=== PATIENT | female | born 1970 | race Caucasian/White ===

== ENCOUNTER 2019-09-24 11:08 | Emergency (ER) | payer BC ==
[2019-09-24 11:14] VITALS: RESP 18; TEMP 98.3
--- NOTE | 2019-09-24 11:44 | ED ---
Lower Extremity Injury HPI - General Chief Complaint: Extremity Injury, Lower Stated Complaint: fall/leg pain Time Seen by Provider: 09/24/19 11:19 Source: patient Mode of arrival: wheelchair Limitations: no limitations - History of Present Illness Initial Comments: 49-year-old female presenting today for chief complaint of left knee pain. Patient states that she has left knee pain anteriorly and posteriorly after fall she states that she tripped over her dog. Patient denies dislocation she denies numbness tingling or loss of sensation coolness or pallor of the extremity denies a pain in the hip ankle or foot. Patient denies injury to her head and neck abdomen or chest doesn't injury of the upper extremities remaining review of systems negative upon arrival patient appears well no signs of acute distress. - Related Data Allergies Allergy/AdvReac Type Severity Reaction Status Date / Time codeine Allergy Swelling Verified 09/24/19 11:14 dicyclomine [From Bentyl] Allergy Rash/Hives Verified 09/24/19 11:14 morphine Allergy Swelling Verified 09/24/19 11:14 Review of Systems ROS Statement: Those systems with pertinent positive or pertinent negative responses have been documented in the HPI. ROS Other: All systems not noted in ROS Statement are negative. Past Medical History Past Medical History: Hypertension History of Any Multi-Drug Resistant Organisms: None Reported Past Surgical History: Cholecystectomy Additional Past Surgical History / Comment(s): tubal , brain tumor removal Past Psychological History: No Psychological Hx Reported Smoking Status: Never smoker Past Alcohol Use History: None Reported Past Drug Use History: None Reported General Exam - General Exam Comments Initial Comments: General: The patient is awake and alert, in no distress, and does not appear acutely ill. Eye: Pupils are equal, round and reactive to light, extra-ocular movements are intact. No nystagmus. There is normal conjunctiva bilaterally. No signs of icterus. Ears, nose, mouth and throat: There are moist mucous membranes and no oral lesions. Neck: The neck is supple, there is no tenderness or JVD. Cardiovascular: There is a regular rate and rhythm. No murmur, rub or gallop is appreciated. Respiratory: Lungs are clear to auscultation, respirations are non-labored, breath sounds are equal. No wheezes, stridor, rales, or rhonchi. Musculoskeletal: Patient is able to range at the knees bilaterally however complains of significant tenderness is range of motion of the left knee. Strength preserved no evidence of foot drop. Sensation intact proximal and dis danny injury site. There is no bruising or swelling posteriorly or distally. Radial and DP pulses equal bilaterally 2+. Neurological: A&O x 3. CN II-XII intact grossly, There are no obvious motor or sensory deficits. Coordination appears grossly intact. Speech is normal. Skin: Skin is warm and dry and no rashes or lesions are noted. Psychiatric: Cooperative, appropriate mood & affect, normal judgment. Limitations: no limitations Course Vital Signs 09/24/19 09/24/19 11:09 12:50 Temperature 98.3 F 98.3 F Pulse Rate 82 78 Respiratory 18 18 Rate Blood Pressure 146/97 138/78 O2 Sat by Pulse 98 98 Oximetry Medical Decision Making - Medical Decision Making 29-year-old female presenting for follow-up. X-ray negative for fracture. Patient is able to weight-bear however with pain patient placed in the immobilizer she is neurovascularly intact. I recommend importance of follow up with primary care provider if symptoms persist greater than 5 days she is to follow-up with orthopedic surgery recommended use of crutches for comfort as well as Rice instruction patient is agreeable to this Discharge at This Time Case Discussed Medicine Provider Dr. Kenney. Imaging personally reviewed. Disposition Clinical Impression: Fall, Left knee pain Disposition: HOME SELF-CARE Condition: Good Instructions (If sedation given, give patient instructions): Knee Sprain (ED), Knee Pain (ED) Additional Instructions: Please use medication as discussed. Please follow-up with family doctor in the next 2 days, if symptoms persistent x > 5 days please follow-up with orthopedics as discussed. Please return to emergency room if the symptoms increase or worsen or for any other concerns. Is patient prescribed a controlled substance at d/c from ED?: No Referrals: Blayne Maldonado MD [STAFF PHYSICIAN] - 1-2 days Jack Drew MD [Medical Doctor] - 1-2 days Time of Disposition: 11:59
--- NOTE | 2019-09-24 11:52 | XR ---
EXAMINATION TYPE: XR knee complete LT DATE OF EXAM: 09/24/2019 CLINICAL HISTORY: Left knee pain TECHNIQUE: Three views of the left knee are obtained. COMPARISON: None. FINDINGS: There is no acute fracture/dislocation evident in left knee. The tri-compartment joint sp aces appear within normal limits. The overlying soft tissue appears unremarkable. IMPRESSION: There is no acute fracture or dislocation in the left knee.
[2019-09-24 13:00] VITALS: BP 138/78; PULSE 78
== END 2019-09-24 12:50 | disposition home or self-care (01) ==
LOC: EC 11:08
DX: M25.562 Pain in left knee (principal); Z88.5 Allergy status to narcotic agent; Z88.8 Allergy status to other drugs, medicaments and biological substances; W01.0XXA Fall on same level from slipping, tripping and stumbling without subsequent striking against object, initial encounter
CPT/HCPCS: 73562; 99283; L1830

== ENCOUNTER 2019-11-01 19:33 | Emergency (ER) | payer BC ==
[2019-11-01 19:52] VITALS: RESP 18; TEMP 98
--- NOTE | 2019-11-01 20:18 | ED ---
Extremity Problem HPI - General Chief complaint: Extremity Problem,Nontraumatic Stated complaint: Leg swelling Time Seen by Provider: 11/01/19 19:59 Source: patient Mode of arrival: ambulatory Limitations: no limitations - History of Present Illness Initial comments: Patient is a 49-year-old female presenting to the emergency Department with complaints of bilateral lower leg swelling, tingling. Patient states she had a virtual health visit with her PCPs office today and they recommended her coming into the emergency department for ultrasounds of her legs to rule out a blood clot. Patient states for the last few weeks she's been having some achiness in both of her lower legs. She states today she noticed some swelling on the inside part of her right knee as well as some intermittent tingling into her bilateral feet. Patient denies history of DVTs, she is not on blood thinners. Patient denies any other new medications. She denies any injuries. She states she does have an appointment with her PCPs office next week to evaluate her low back to see if that is what causing the pain in her legs however they wanted her to rule out a blood clot first. She denies any recent fever, chills, abdominal pain, chest pain, stops of breath. She has no further complaints at this time. Upon arrival to the ER, her vitals are stable. - Related Data Allergies Allergy/AdvReac Type Severity Reaction Status Date / Time codeine Allergy Swelling Verified 11/01/19 19:52 dicyclomine [From Bentyl] Allergy Rash/Hives Verified 11/01/19 19:52 morphine Allergy Swelling Verified 11/01/19 19:52 Review of Systems ROS Statement: Those systems with pertinent positive or pertinent negative responses have been documented in the HPI. ROS Other: All systems not noted in ROS Statement are negative. Past Medical History Past Medical History: Hypertension History of Any Multi-Drug Resistant Organisms: None Reported Past Surgical History: Cholecystectomy Additional Past Surgical History / Comment(s): tubal , brain tumor removal Past Psychological History: No Psychological Hx Reported Smoking Status: Never smoker Past Alcohol Use History: None Reported Past Drug Use History: None Reported General Exam - General Exam Comments Initial Comments: GENERAL: Well-appearing, well-nourished and in no acute distress. HEAD: Atraumatic, normocephalic. EYES: Pupils equal round and reactive to light, extraocular movements intact, sclera anicteric, conjunctiva are normal. ENT: TMs normal, nares patent, oropharynx clear without exudates. Moist mucous membranes. NECK: Normal range of motion, supple without lymphadenopathy or JVD. LUNGS: Breath sounds clear to auscultation bilaterally and equal. No wheezes rales or rhonchi. HEART: Regular rate and rhythm without murmurs, rubs or gallops. ABDOMEN: Soft, nontender, normoactive bowel sounds. No guarding, no rebound. No masses appreciated. : Deferred EXTREMITIES: Patient has some mild swelling of the right knee, compared to the left knee. She does seem to have full range of motion. There is no overlying erythema. She does have some mild discomfort with palpation of the right calf. She is neurovascular intact bilaterally. No clubbing or cyanosis. NEUROLOGICAL: Cranial nerves II through XII grossly intact. Normal speech, normal gait. PSYCH: Normal mood, normal affect. SKIN: Warm, Dry, normal turgor, no rashes or lesions noted. Limitations: no limitations Course Vital Signs 11/01/19 11/01/19 19:47 21:31 Temperature 98.0 F Pulse Rate 84 75 Respiratory 18 18 Rate Blood Pressure 148/96 151/85 O2 Sat by Pulse 98 99 Oximetry Medical Decision Making - Medical Decision Making Patient is a 49-year-old female here for bilateral lower leg swelling and tingling. She was sent in by her PCP to rule out a DVT. She is set to see her PCP regarding lower back discomfort next week. Ultrasound of bilateral lower legs reveal no evidence of acute DVT. I did discuss this with the patient. She is stable for discharge. She will follow back up with her PCP. She is in agreement this plan of care. Disposition Clinical Impression: Edema of right lower leg Disposition: HOME SELF-CARE Condition: Stable Instructions (If sedation given, give patient instructions): Leg Edema (ED) Additional Instructions: Please return to the Emergency Department if symptoms worsen or any other concerns. Follow-up with PCP. Elevate legs above the heart to help with swelling. Is patient prescribed a controlled substance at d/c from ED?: No Referrals: Blayne Maldonado MD [STAFF PHYSICIAN] - 1-2 days
--- NOTE | 2019-11-01 21:12 | US ---
EXAMINATION TYPE: US venous doppler duplex LE DATE OF EXAM: 11/01/2019 8:57 PM COMPARISON: NONE CLINICAL HISTORY: swelling, achy, tingling. Pain and swelling bilateral legs x 1 day. No hx of DVT. P atient does not take blood thinners. SIDE PERFORMED: Bilateral TECHNIQUE: The lower extremity deep venous system is examined utilizing real time linear array sonog matilde with graded compression, doppler sonography and color-flow sonography. VESSELS IMAGED: External Iliac Vein (EIV) Common Femoral Vein Deep Femoral Vein Greater Saphenous Vein * Femoral Vein Popliteal Vein Small Saphenous Vein * Proximal Calf Veins (* superficial vessels) *Limited due to patient body habitus. Right Leg: No evidence of DVT in veins imaged at this time from prox calf veins to EIV. Left Leg: No evidence of DVT in veins imaged at this time from prox calf veins to EIV. IMPRESSION: No evidence for DVT at this time.
[2019-11-01 21:34] VITALS: BP 151/85; PULSE 75
== END 2019-11-01 21:34 | disposition home or self-care (01) ==
LOC: EC 19:33
DX: R60.0 Localized edema (principal); R20.2 Paresthesia of skin; Z88.5 Allergy status to narcotic agent; Z88.8 Allergy status to other drugs, medicaments and biological substances
CPT/HCPCS: 93970; 99283

== ENCOUNTER → 2019-11-12 | Outpatient (CLI) | payer BC | END | disposition home or self-care (01) | LOC: RADMRIMAIN 13:52 | PROVIDERS: ATTEND Nurse Practitioner Family | DX: Z53.9 Procedure and treatment not carried out, unspecified reason (principal) ==

== ENCOUNTER 2020-03-24 19:06 | Emergency (ER) | payer BC ==
[2020-03-24] MEDS ORDERED: SODIUM CHLORIDE 0.9% 500 ML 500 ML IV STA (19:25)
[2020-03-24] MEDS ORDERED: NITROGLYCERIN OINT 1 INCH/GM PACKET TOPICAL STA (19:25)
[2020-03-24] MEDS ORDERED: ASPIRIN 81 MG PO STA (19:25)
--- NOTE | 2020-03-24 19:47 | XR ---
EXAMINATION TYPE: XR chest 2V DATE OF EXAM: 03/24/2020 COMPARISON: NONE HISTORY: Chest pain TECHNIQUE: 2 views FINDINGS: Heart and mediastinum are normal. Lungs are clear of infiltrate. There is no heart failure. There are no hilar masses. Bony thorax is intact. Costophrenic angles are clear. IMPRESSION: No active cardiopulmonary disease. Normal heart.
[2020-03-24 19:54] LABS: Basophils # (A) 0.1 k/uL (0-0.2); Basophils % (A) 0 %; Eosinophils # (A) 0.3 k/uL (0-0.7); Eosinophils % (A) 2 %; HCT 40.8 % (34.0-46.0); HGB 12.8 gm/dL (11.4-16.0); Lymphocytes # (A) 3.7 k/uL (1.0-4.8); Lymphocytes % (A) 22 %; MCH 28.5 pg (25.0-35.0); MCHC 31.4 g/dL (31.0-37.0); MCV 90.7 fL (80.0-100.0); Mean Platelet Volume 7.3; Monocytes # (A) 0.7 k/uL (0-1.0); Monocytes % (A) 4 %; Neutrophils % (A) 71 %; Platelet Count 378 k/uL (150-450); RDW 14.4 % (11.5-15.5); WBC 16.9 k/uL (3.8-10.6)
--- NOTE | 2020-03-24 20:03 | ED ---
General Adult HPI - General Chief complaint: Chest Pain Stated complaint: chest pain Time Seen by Provider: 03/24/20 19:15 Source: patient, RN notes reviewed, old records reviewed Mode of arrival: ambulatory Limitations: no limitations - History of Present Illness Initial comments: This is a 49-year-old female with past medical history significant for h ypertension. She also has a positive family history for coronary artery disease. Patient comes in today stating that a half hour prior to arrival she was having chest pain is in her chest that radiated to her jaw made her short of breath. Patient states she's episode lasted about 5 minutes and she had about 4 of them prior to arrival. Patient denies any nausea. Patient denies any vomiting. Patient denies any recent fever chills or cough. Patient denies any exposure over. Patient denies lightheadedness dizziness or near syncopal episode. Patient denies any headache patient denies numbness weakness. Patient denies any abdominal pain patient denies any vomiting or diarrhea. Patient d enies any loss of taste or smell. Patient denies any calf tenderness or leg swelling - Related Data Allergies Allergy/AdvReac Type Severity Reaction Status Date / Time codeine Allergy Swelling Verified 03/24/20 19:11 dicyclomine [From Bentyl] Allergy Rash/Hives Verified 03/24/20 19:11 morphine Allergy Swelling Verified 03/24/20 19:11 Review of Systems ROS Statement: Those systems with pertinent positive or pertinent negative responses have been documented in the HPI. ROS Other: All systems not noted in ROS Statement are negative. Past Medical History Past Medical History: Hyperlipidemia, Hypertension Additional Past Medical History / Comment(s): RA and psoriasis History of Any Multi-Drug Resistant Organisms: None Reported Past Surgical History: Cholecystectomy Additional Past Surgical History / Comment(s): tubal , brain tumor removal Past Psychological History: No Psychological Hx Reported Smoking Status: Never smoker Past Alcohol Use History: None Reported Past Drug Use History: None Reported General Exam - General Exam Comments Initial Comments: GENERAL: Patient is well-developed and well-nourished. Patient is nontoxic and well- hydrated and is in mild distress. ENT: Neck is soft and supple. No significant lymphadenopathy is noted. Oropharynx is clear. Moist mucous membranes. Neck has full range of motion without eliciting any pain. EYES: The sclera were anicteric and conjunctiva were pink and moist. Extraocular movements were intact and pupils were equal round and reactive to light. Eyelids were unremarkable. PULMONARY: Unlabored respirations. Good breath sounds bilaterally. No audible rales rhonchi or wheezing was noted. CARDIOVASCULAR: There is a regular rate and rhythm without any murmurs gallops or rubs. ABDOMEN: Soft and nontender with normal bowel sounds. SKIN: Skin is clear with no lesions or rashes and otherwise unremarkable. NEUROLOGIC: Patient is alert and oriented x3. Cranial nerves II through XII are grossly intact. Motor and sensory are also intact. Normal speech, volume and content. Symmetrical smile. MUSCULOSKELETAL: Normal extremities with adequate strength and full range of motion. No lower extremity swelling or edema. No calf tenderness. LYMPHATICS: No significant lymphadenopathy is noted PSYCHIATRIC: Normal psychiatric evaluation. Limitations: no limitations Course Vital Signs 03/24/20 03/24/20 19:11 19:51 Temperature 98 F Pulse Rate 89 78 Respiratory 18 17 Rate Blood Pressure 137/100 117/71 O2 Sat by Pulse 100 98 Oximetry Medical Decision Making - Medical Decision Making EKG shows normal sinus rhythm at 74 bpm NV interval 236 QRS is 86 QT interval 346 QTC is 384. Patient's EKG shows no ST segment elevation or depression. Chest x-ray shows no acute abnormality. Patient's lab work came back in and discuss results with the patient indicated to the patient that I thought she should stay. Repeat lab work and follow up with cardiology. Patient states she did not want to stay that her think about it for about 5 minutes I went back into the room and she insisted on signing out AMA patient understood the risks of possible morbidity or mortality. - Lab Data Result diagrams: 03/24/20 19:47 03/24/20 19:50 Lab Results 03/24/20 03/24/20 03/24/20 Range/Units 19:47 19:47 19:47 WBC 16.9 H (3.8-10.6) k/uL RBC 4.50 (3.80-5.40) m/uL Hgb 12.8 (11.4-16.0) gm/dL Hct 40.8 (34.0-46.0) % MCV 90.7 (80.0-100.0) fL MCH 28.5 (25.0-35.0) pg MCHC 31.4 (31.0-37.0) g/dL RDW 14.4 (11.5-15.5) % Plt Count 378 (150-450) k/uL MPV 7.3 Neutrophils % 71 % Lymphocytes % 22 % Monocytes % 4 % Eosinophils % 2 % Basophils % 0 % Neutrophils # 12.0 H (1.3-7.7) k/uL Lymphocytes # 3.7 (1.0-4.8) k/uL Monocytes # 0.7 (0-1.0) k/uL Eosinophils # 0.3 (0-0.7) k/uL Basophils # 0.1 (0-0.2) k/uL PT 9.6 (9.0-12.0) sec INR 0.9 (<1.2) APTT 22.6 (22.0-30.0) sec Sodium (137-145) mmol/L Potassium (3.5-5.1) mmol/L Chloride (98-107) mmol/L Carbon Dioxide (22-30) mmol/L Anion Gap mmol/L BUN (7-17) mg/dL Creatinine (0.52-1.04) mg/dL Est GFR (CKD-EPI)AfAm (>60 ml/min/1.73 sqM) Est GFR (CKD-EPI)NonAf (>60 ml/min/1.73 sqM) Glucose (74-99) mg/dL Calcium (8.4-10.2) mg/dL Magnesium (1.6-2.3) mg/dL Total Bilirubin (0.2-1.3) mg/dL AST (14-36) U/L ALT (4-34) U/L Alkaline Phosphatase (38-126) U/L Troponin I <0.012 (0.000-0.034) ng/mL Total Protein (6.3-8.2) g/dL Albumin (3.5-5.0) g/dL 03/24/20 Range/Units 19:50 WBC (3.8-10.6) k/uL RBC (3.80-5.40) m/uL Hgb (11.4-16.0) gm/dL Hct (34.0-46.0) % MCV (80.0-100.0) fL MCH (25.0-35.0) pg MCHC (31.0-37.0) g/dL RDW (11.5-15.5) % Plt Count (150-450) k/uL MPV Neutrophils % % Lymphocytes % % Monocytes % % Eosinophils % % Basophils % % Neutrophils # (1.3-7.7) k/uL Lymphocytes # (1.0-4.8) k/uL Monocytes # (0-1.0) k/uL Eosinophils # (0-0.7) k/uL Basophils # (0-0.2) k/uL PT (9.0-12.0) sec INR (<1.2) APTT (22.0-30.0) sec Sodium 136 L (137-145) mmol/L Potassium 4.4 (3.5-5.1) mmol/L Chloride 104 (98-107) mmol/L Carbon Dioxide 27 (22-30) mmol/L Anion Gap 5 mmol/L BUN 22 H (7-17) mg/dL Creatinine 0.77 (0.52-1.04) mg/dL Est GFR (CKD-EPI)AfAm >90 (>60 ml/min/1.73 sqM) Est GFR (CKD-EPI)NonAf >90 (>60 ml/min/1.73 sqM) Glucose 103 H (74-99) mg/dL Calcium 9.4 (8.4-10.2) mg/dL Magnesium 2.2 (1.6-2.3) mg/dL Total Bilirubin 0.5 (0.2-1.3) mg/dL AST 27 (14-36) U/L ALT 34 (4-34) U/L Alkaline Phosphatase 83 (38-126) U/L Troponin I (0.000-0.034) ng/mL Total Protein 6.5 (6.3-8.2) g/dL Albumin 3.9 (3.5-5.0) g/dL Disposition Clinical Impression: Unstable angina pectoris Disposition: Left Against Medical Advice Referrals: Blayne Maldonado MD [Primary Care Provider] - 1-2 days Time of Disposition: 21:06
[2020-03-24 20:05] LABS: INR 0.9 (<1.2); Partial Thromboplastin Time 22.6 sec (22.0-30.0); Prothrombin Time 9.6 sec (9.0-12.0)
[2020-03-24 20:07] LABS: ALT 34 U/L (4-34); AST 27 U/L (14-36); African American GFR (CKD) >90 (>60 ml/min/1.73 sqM); Albumin 3.9 g/dL (3.5-5.0); Alkaline Phosphatase 83 U/L (38-126); Anion Gap 5 mmol/L; Blood Urea Nitrogen 22 mg/dL (7-17); Calcium 9.4 mg/dL (8.4-10.2); Carbon Dioxide 27 mmol/L (22-30); Chloride 104 mmol/L (98-107); Glucose 103 mg/dL (74-99); Magnesium 2.2 mg/dL (1.6-2.3); Non-African American GFR(CKD) >90 (>60 ml/min/1.73 sqM); Potassium 4.4 mmol/L (3.5-5.1); Sodium 136 mmol/L (137-145); Total Bilirubin 0.5 mg/dL (0.2-1.3); Total Protein 6.5 g/dL (6.3-8.2)
[2020-03-24 21:12] VITALS: BP 110/61; PULSE 76; RESP 18; TEMP 98.1
== END 2020-03-24 21:25 | disposition left against medical advice (07) ==
LOC: EC 19:06
DX: I20.0 Unstable angina (principal); Z88.5 Allergy status to narcotic agent; Z88.8 Allergy status to other drugs, medicaments and biological substances; Z53.29 Procedure and treatment not carried out because of patient's decision for other reasons
CPT/HCPCS: 36415; 71046; 80053; 83735; 84484; 85025; 85610; 85730; 93005; 99285

== ENCOUNTER → 2020-06-05 | Outpatient (CLI) | payer BC ==
--- NOTE | 2020-06-05 10:26 | XR ---
EXAMINATION TYPE: XR skull complete DATE OF EXAM: 06/05/2020 COMPARISON: NONE HISTORY: History of brain surgery 32 years ago, pre-MRI study. TECHNIQUE: Skull complete with both lateral projections along with frontal and posterior projections FINDINGS: No metallic intracranial foreign body is identified to prevent MRI study. IMPRESSION: As above.
== END | disposition home or self-care (01) ==
LOC: RADXRMAIN 09:54
PROVIDERS: ATTEND Physical Medicine & Rehabilitation
DX: Z03.89 Encounter for observation for other suspected diseases and conditions ruled out (principal); Z98.890 Other specified postprocedural states
CPT/HCPCS: 70260

== ENCOUNTER 2020-12-11 21:13 | Emergency (ER) | payer BC ==
[2020-12-11 21:18] VITALS: BP 143/76; PULSE 97; RESP 18; TEMP 98.2
--- NOTE | 2020-12-11 21:37 | XR ---
RESULT: HISTORY: left ring finger injury TECHNIQUE: 3 views of the left ring finger were obtained. COMPARISON: None. FINDINGS: There is ulnar and dorsal dislocation of the ring finger distal interphalangeal joint. No evidence of displaced fracture. No radiopaque foreign body. IMPRESSION: As above.
--- NOTE | 2020-12-11 21:47 | ED ---
General Adult HPI - General Chief complaint: Extremity Injury, Upper Stated complaint: Left hand injury Time Seen by Provider: 12/11/20 21:19 Source: patient, RN notes reviewed Mode of arrival: ambulatory - History of Present Illness Initial comments: Patient is a 50-year-old female that presents to the emergency department complaining of left ring finger injury. She notes she tripped fell try to catch herself when she had her ring finger on the filing cabinet and heard it. She noted the pain while sitting in bed was minimally she was TIME. She denied any other issues or complaints. She was otherwise a well-appearing 50-year-old female. She denied any chest pain shortness of breath headache nausea vomiting diarrhea constipation fever fatigue chills. - Related Data Allergies Allergy/AdvReac Type Severity Reaction Status Date / Time codeine Allergy Swelling Verified 12/11/20 21:18 dicyclomine [From Bentyl] Allergy Rash/Hives Verified 12/11/20 21:18 morphine Allergy Swelling Verified 12/11/20 21:18 Review of Systems ROS Statement: Those systems with pertinent positive or pertinent negative responses have been documented in the HPI. ROS Other: All systems not noted in ROS Statement are negative. Past Medical History Past Medical History: Hyperlipidemia, Hypertension Additional Past Medical History / Comment(s): RA and psoriasis History of Any Multi-Drug Resistant Organisms: None Reported Past Surgical History: Cholecystectomy Additional Past Surgical History / Comment(s): tubal , brain tumor removal Past Psychological History: No Psychological Hx Reported Smoking Status: Never smoker Past Alcohol Use History: None Reported Past Drug Use History: None Reported General Exam General appearance: alert, in no apparent distress Head exam: Present: atraumatic, normocephalic, normal inspection Eye exam: Present: normal appearance, PERRL, EOMI. Absent: scleral icterus, conjunctival injection, periorbital swelling Neck exam: Present: normal inspection Respiratory exam: Present: normal lung sounds bilaterally. Absent: respiratory distress, wheezes, rales, rhonchi, stridor Cardiovascular Exam: Present: regular rate, normal rhythm, normal heart sounds. Absent: systolic murmur, diastolic murmur, rubs, gallop, clicks Extremities exam: Present: normal inspection, full ROM, normal capillary refill, other (Left ring finger distal deformity consistent with dislocation.). Absent: tenderness, pedal edema, joint swelling, calf tenderness Neurological exam: Present: alert, oriented X3 Psychiatric exam: Present: normal affect, normal mood Skin exam: Present: warm, dry, intact, normal color. Absent: rash Course Vital Signs 12/11/20 21:14 Temperature 98.2 F Pulse Rate 97 Respiratory 18 Rate Blood Pressure 143/76 O2 Sat by Pulse 99 Oximetry Procedures - Orthopedic Joint Reduction Joint #1 Consent Obtained: verbal consent Side: left Joint Reduction Location: finger (Ring) Shoulder Technique Used (if applicable): traction/counter-traction Post-Reduction Neuro Exam: intact Post-Reduction Vascular Exam: intact Splint Applied: Yes Patient Tolerated Procedure: well - Orthopedic Splinting/Casting Injury #1 Side: left Upper Extremity Injury Location: finger (Ring) Upper Extremity Immobilizer: aluminum form splint Medical Decision Making - Medical Decision Making 50-year-old female complaining of left ring finger injury. X-ray of the left ring finger ordered. Left ring finger dislocation was reduced with no complications, splint was placed. Case discussed with Dr. Kenney him a patient can discharge home. - Radiology Data Radiology results: report reviewed, image reviewed X-ray of the left ring finger: There is ulnar and dorsal dislocation of the ring finger distal interphalangeal joint. No evidence of displaced fracture. No radiopaque foreign body. Disposition Clinical Impression: Dislocation of left ring finger Disposition: HOME SELF-CARE Condition: Stable Instructions (If sedation given, give patient instructions): Finger Dislocation (ED) Additional Instructions: Please return to the Emergency Department if symptoms worsen or any other concerns. Take Tylenol and Motrin as needed for pain. Keep splint on for the next several days. Follow-up with primary care in 1-2 days. Is patient prescribed a controlled substance at d/c from ED?: No Referrals: Blayne Maldonado MD [Primary Care Provider] - 1-2 days Time of Disposition: 21:46
== END 2020-12-11 21:55 | disposition home or self-care (01) ==
LOC: EC 21:13
DX: S63.295A Dislocation of distal interphalangeal joint of left ring finger, initial encounter (principal); E78.5 Hyperlipidemia, unspecified; I10 Essential (primary) hypertension; Z88.6 Allergy status to analgesic agent; Z90.49 Acquired absence of other specified parts of digestive tract; W01.0XXA Fall on same level from slipping, tripping and stumbling without subsequent striking against object, initial encounter
CPT/HCPCS: 26770; 99283

== ENCOUNTER → 2021-04-24 | Outpatient (CLI) | payer BC ==
--- NOTE | 2021-04-24 08:12 | US ---
EXAMINATION TYPE: US thyroid st tissue head/neck DATE OF EXAM: 04/24/2021 COMPARISON: NONE CLINICAL HISTORY: R22.1 lump mass neck. GLAND SIZE: Right Lobe: 5.1 X 2.2 X 1.6 cm Overall Parenchyma: homogenous Left Lobe: 3.6 X 2.4 X 1.6 cm Overall Parenchyma: homogeneous Isthmus Thickness: 0.6 cm NODULES RIGHT: # of nodules measured on right: 0 LEFT: # of nodules measured on left: 1 1. 1.0 X 1.0 x 0.9 cm, lower medial, solid or almost completely solid, hypoechoic nodule, which is wider than tall, with ill-defined margins, with few punctate echogenic foci. Prior size: NO PRIOR ISTHMUS: # of nodules measured in the isthmus: Bilateral neck scanned, no evidence of lymphadenopathy. Scanning was performed directly over palpable as pointed out by patient. This is over thyroid nodule, no other abnormality noted. Slightly heterogeneous fairly normal size thyroid with suspicious left-sided nodule. IMPRESSION: Just over 1.0 cm hypoechoic ill-defined solid nodule with few punctate echogenic foci. Sa mpling should be considered. Finding corresponds to palpable abnormality. 2017 ACR TI-RADS LEVEL: TI-RADS 5 - Highly Suspicious: Follow if > 0.5 cm, FNA if > 1.0 cm *Highest TI-RADS level nodule reported
--- NOTE | 2021-04-24 08:13 | US ---
EXAMINATION TYPE: US kidneys/renal and bladder DATE OF EXAM: 04/24/2021 COMPARISON: NONE CLINICAL HISTORY: R10.11 Right flank pain. EXAM MEASUREMENTS: Right Kidney: 12.9 x 4.8 x 6.3 cm Left Kidney: 10.9 x 6.1 x 6.4 cm Right Kidney: No hydronephrosis or masses seen Left Kidney: No hydronephrosis or masses seen Bladder: wnl Bilateral Jets seen: Yes There is no evidence for hydronephrosis at this point in time. No nephrolithiasis is seen. No xiomara s are identified. The urinary bladder is satisfactorily distended. Bilateral ureteral jets are seen . IMPRESSION: Unremarkable study.
[2021-04-24 08:46] LABS: Basophils # (A) 0.1 k/uL (0-0.2); Basophils % (A) 1 %; Eosinophils # (A) 0.2 k/uL (0-0.7); Eosinophils % (A) 2 %; Lymphocytes # (A) 3.2 k/uL (1.0-4.8); Lymphocytes % (A) 23 %; MCH 29.6 pg (25.0-35.0); MCHC 31.7 g/dL (31.0-37.0); MCV 93.4 fL (80.0-100.0); Mean Platelet Volume 7.8; Monocytes # (A) 0.8 k/uL (0-1.0); Monocytes % (A) 6 %; Neutrophils # (A) 9.3 k/uL (1.3-7.7); Neutrophils % (A) 67 %; Platelet Count 351 k/uL (150-450); RBC 4.07 m/uL (3.80-5.40); RDW 12.9 % (11.5-15.5); WBC 13.8 k/uL (3.8-10.6)
[2021-04-24 08:55] LABS: ALT 21 U/L (4-34); AST 23 U/L (14-36); African American GFR (CKD) >90 (>60 ml/min/1.73 sqM); Albumin 3.5 g/dL (3.5-5.0); Alkaline Phosphatase 100 U/L (38-126); Anion Gap 4 mmol/L; Blood Urea Nitrogen 9 mg/dL (7-17); Calcium 9.3 mg/dL (8.4-10.2); Carbon Dioxide 29 mmol/L (22-30); Chloride 101 mmol/L (98-107); Glucose 88 mg/dL (74-99); Non-African American GFR(CKD) >90 (>60 ml/min/1.73 sqM); Potassium 3.9 mmol/L (3.5-5.1); Sodium 134 mmol/L (137-145); Total Bilirubin 0.4 mg/dL (0.2-1.3); Total Protein 6.5 g/dL (6.3-8.2)
[2021-04-24 09:12] LABS: T4, Free (Free Thyroxine) 1.32 ng/dL (0.78-2.19)
[2021-04-24 15:16] LABS: Chol/HDL Ratio 2.63 Ratio; LDL Cholesterol,Calculated 80.9 mg/dL (0.0-131.0)
== END | disposition home or self-care (01) ==
LOC: RADUSWWP 07:29
PROVIDERS: ATTEND Family Medicine
DX: Z00.01 Encounter for general adult medical examination with abnormal findings (principal); R10.11 Right upper quadrant pain; R22.1 Localized swelling, mass and lump, neck; E04.1 Nontoxic single thyroid nodule; E55.9 Vitamin D deficiency, unspecified; E66.9 Obesity, unspecified; Z68.42 Body mass index [BMI] 45.0-49.9, adult
CPT/HCPCS: 76536; 76770; 80053; 80061; 82306; 83036; 84439; 84443; 85025

== ENCOUNTER → 2021-05-13 | Outpatient (CLI) | payer BC ==
--- NOTE | 2021-05-18 14:22 | MM ---
Reason for exam: clinical finding. Baseline mammogram. History: Patient is postmenopausal. Took hormonal contraceptives for 2 years beginning at age 17. Indicated problem(s): palpable abnormality and pain in the left breast. Physical Findings: Nurse Summary: 1-2cm nodule in the left breast at 1-2 o'clock axillary tail (nurse db). MG Diagnostic Mammo w CAD RINKU Bilateral CC, MLO, and XCCL view(s) were taken. There are scattered fibroglandular densities. There are benign appearing round calcifications bilaterally. There is no discrete abnormality. These results were verbally communicated with the patient and result sheet given to the patient on 05/13/21. ASSESSMENT: Incomplete: need additional imaging evaluation, BI-RAD 0 RECOMMENDATION: Ultrasound of the left breast. (axilla palpable)
--- NOTE | 2021-05-18 14:25 | USB ---
Reason for exam: additional evaluation requested from abnormal screening. History: Patient is postmenopausal. Took hormonal contraceptives for 2 years beginning at age 17. US Breast Axilla LT Left axilla breast ultrasound demonstrates a 15mm lymph node at the axillary tail and a 4 x 4 x 4mm oval, solid lesion connected to lymph node at the axilla tail. Possible abnormal lymph node versus other lesion. These results were verbally communicated with the patient and result sheet given to the patient on 05/13/21. ASSESSMENT: Probably benign, BI-RAD 3 RECOMMENDATION: Surgical consultation of the left breast. Advise contrast enhanced chest CT follow up. Called Dr. Maldonado's office with mammographic findings. Patient request to check with insurance and doctor for surgeon referral and will notifiy [facility]. PRELIMINARY REPORT CALLED AND FAXED TO DR. MALDONADO ON 05/18/21.
== END | disposition home or self-care (01) ==
LOC: RADMAMWWP 14:19
PROVIDERS: ATTEND Family Medicine
DX: R92.1 Mammographic calcification found on diagnostic imaging of breast (principal); N64.59 Other signs and symptoms in breast; Z78.0 Asymptomatic menopausal state
CPT/HCPCS: 77066

== ENCOUNTER → 2021-06-25 | Outpatient (CLI) | payer BC ==
[2021-06-25 11:33] VITALS: BP 149/92; PULSE 103; RESP 17; TEMP 97.9
--- NOTE | 2021-06-25 12:25 | P.GSHP ---
History of Present Illness H&P Date: 06/25/21 Chief Complaint: Left axillary adenopathy Key is a 51-year-old white female seen in consultation for Dr. Keisha felix regarding a radiographic abnormality in the left axilla. She underwent a bilateral mammogram on . Following this an ultrasound of the left axilla was recommended. The nurse have felt a 1-2 cm nodule in the left breast at the 1 to 2:00 axillary tail position. An ultrasound was then performed on the same date which revealed a 4 x 4 mm oval solid lesion connecting to a 15 mm lymph node in the axillary tail. This was personally reviewed with Dr. Zuleta. The patient noted some tenderness under her left arm but no discrete constant mass. She has not had any history of trauma or infection in either breast nor in her left arm or hand. She is not complaining of any nipple discharge or skin changes. She is not complaining of any lumps masses or nodules in either breast. This was her first mammogram. Note from Dr. Maldonado reviewed; 05-20-21 Patient had recent 1 cm nodule left thyroid node biopsy the cytology was unsatisfactory and this is being followed by Dr. Wade. 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; at 19 gallbaldder Medical History: Rheumatoid arthritis Psoriasis carpel tunnel bilateral Hypertension Questionable hyperlipidemia Social History: nicotine: none alcohol:occasional drugs: none - Constitutional Constitutional: Denies chills, Denies fever - EENT Eyes: denies blurred vision, denies pain Ears: bilateral: tinnitus, deny: decreased hearing Ears, nose, mouth and throat: Denies headache, Denies sore throat - Breasts Breasts: bilateral: as per HPI - Cardiovascular Cardiovascular: Denies chest pain, Denies shortness of breath - Respiratory Respiratory: Denies cough, Denies 7 - Gastrointestinal Gastrointestinal: Reports constipation, Denies abdominal pain, Denies diarrhea, Denies nausea, Denies vomiting - Genitourinary (Female) Genitourinary: Denies dysuria, Denies hematuria - Menstruation Menstruation: Reports postmenopausal - Musculoskeletal Musculoskeletal: Reports as per HPI - Integumentary Comment: Psoriasis Integumentary: Reports as per HPI - Neurological Neurological: Reports as per HPI - Psychiatric Psychiatric: Denies anxiety, Denies depression - Endocrine Endocrine: Reports weight change, Denies fatigue - Hematologic/Lymphatic Comment: none - Allergic/Immunologic Allergic/Immunologic: Reports seasonal allergies Past Medical History Past Medical History: Hyperlipidemia, Hypertension Additional Past Medical History / Comment(s): RA and psoriasis History of Any Multi-Drug Resistant Organisms: None Reported Past Surgical History: Cholecystectomy Additional Past Surgical History / Comment(s): tubal , brain tumor removal Past Psychological History: No Psychological Hx Reported Smoking Status: Never smoker Past Alcohol Use History: None Reported Past Drug Use History: None Reported Medications and Allergies Home Medications Medication Instructions Recorded Confirmed Type Abatacept [Orencia] 125 ml IJ ONCE 06/25/21 06/25/21 History Cyclobenzaprine HCl 10 mg PO DAILY 06/25/21 06/25/21 History DULoxetine HCL [Cymbalta] 30 mg PO DAILY 06/25/21 06/25/21 History Ergocalciferol (Vitamin D2) 1,250 mcg PO WEEKLY 06/25/21 06/25/21 History [Drisdol (50,000 Iu)] Fluticasone Nasal [place] [Flonase 50 ml NASAL DAILY 06/25/21 06/25/21 History Nasal [place]] Lisinopril [Prinivil] 10 mg PO DAILY 06/25/21 06/25/21 History Loratadine 10 mg PO QID 06/25/21 06/25/21 History Omeprazole 20 mg PO ONCE 06/25/21 06/25/21 History Allergies Allergy/AdvReac Type Severity Reaction Status Date / Time codeine Allergy Swelling Verified 06/25/21 11:16 dicyclomine [From Bentyl] Allergy Rash/Hives Verified 06/25/21 11:16 morphine Allergy Swelling Verified 06/25/21 11:16 Surgical - Exam Vital Signs Temp Pulse Resp BP Pulse Ox 97.9 F 103 H 17 149/92 98 06/25/21 11:30 06/25/21 11:30 06/25/21 11:30 06/25/21 11:30 06/25/21 11:30 BMI 49.9 - General no distress - Eyes normal ocular movement - Neck trachea midline - Respiratory normal respiratory effort, clear to auscultation - Cardiovascular Rhythm: regular Heart Sounds: normal: S1, S2 - Abdomen Abdomen: soft, non tender, no guarding, no rigid, no rebound - Integumentary normal turgor - Neurologic no disoriented, no combative - Musculoskeletal normal gait, normal posture - Psychiatric oriented to time, oriented to person, oriented to place, speech is normal, memory intact Breast Exam: BRA: 40D inspection: Bilateral grade 2/3 ptosis Palpation: Right breast: Multi-positional exam fibrocystic changes no dominant masses or nodules of concern Right axilla: No adenopathy of concern Left breast: Multi-positional exam fibrocystic changes no discrete dominant masses or nodules of concern Left axilla: In the axillary tail/beginning of the axillary region there is some fullness which most likely corresponds with the 1.5 cm lymph node noted on ultrasound Results Mammogram and ultrasound reviewed in detail with Dr. Zuleta Assessment and Plan Assessment: Impression: Radiographic abnormality left axilla Fullness left axilla on examination CT scan with contrast recommend that after ultrasound will review this with Dr. Sofia Consider ultrasound-guided core biopsy of 4 mm lesion in proximity to the lymph node Plan: Consider ultrasound-guided core biopsy of 4 mm lesion abutting 1.5 cm lymph node in the left axilla Consider computed tomography scan with contrast after discussion with Dr. Sofia Follow up after above done Cc: Dr. Maldonado
== END ==
LOC: WWCWWP 10:49
PROVIDERS: ATTEND Surgery
DX: R92.8 Other abnormal and inconclusive findings on diagnostic imaging of breast (principal); N63.32 Unspecified lump in axillary tail of the left breast; M06.9 Rheumatoid arthritis, unspecified; I10 Essential (primary) hypertension; Z88.5 Allergy status to narcotic agent; Z88.3 Allergy status to other anti-infective agents

== ENCOUNTER → 2021-07-02 | Day surgery (SDC) | payer BC ==
[2021-07-02 09:44] VITALS: BP 151/97; PULSE 99; RESP 16; TEMP 98.2
--- NOTE | 2021-07-02 10:55 | P.PN ---
Progress Note - Text Progress Note Date: 07/02/21 Patient came in today for an ultrasound core biopsy 4 mm lesion in the left axilla. The case was reviewed with Dr. Pratt it was felt that it was not technically feasible to do a biopsy of this area. Alternatives were discussed and discussed with the patient. The patient is recommended to have a computed tomography scan of the chest with contrast. Additionally she will have a repeat ultrasound of the axilla in 3 months and if the lesion persists at that time with needle localization and excision in the operating room. The patient understands and this is being scheduled. She will follow up with me following the computed tomography scan of the chest, and then following the ultrasound of the left axilla. CC: Dr. Maldonado
--- NOTE | 2021-07-02 13:14 | USB ---
EXAMINATION TYPE: US discontinued breast bx LT DATE OF EXAM: 07/02/2021 CLINICAL HISTORY: Abnormal left axilla ultrasound. TECHNIQUE: Images from 05/13/2021 were reviewed. The targeted area within the left axilla adjacent to the lymph node is 0.4 cm. This is small and not overly suspicious. Monitoring is recommended. Images are reviewed and the case discussed with Dr. Jose Alex by Dr. Pratt. Follow-up exam can be perform ed. If this is persistent, ultrasound guided wire localization can be performed at that time. IMPRESSION: 1. Probably benign findings Recommendations: 1. Follow-up ultrasound in 3 months from the initial examination, 6 weeks from now, mid July, can be performed for reevaluation.
== END | disposition home or self-care (01) ==
LOC: RADUSWWP 09:31
PROVIDERS: ATTEND Surgery
DX: R92.8 Other abnormal and inconclusive findings on diagnostic imaging of breast (principal)

== ENCOUNTER → 2021-07-23 | Outpatient (CLI) | payer BC ==
--- NOTE | 2021-07-23 08:56 | CT ---
EXAMINATION TYPE: CT chest w con DATE OF EXAM: 07/23/2021 COMPARISON: Ultrasound dated 05/13/2021 and 07/02/2021 HISTORY: Lt axilla mass CT DLP: 975.10 mGycm Automated exposure control for dose reduction was used. TECHNIQUE: CT scan of the chest is performed with IV Contrast, patient injected with 100 mL of Isovue 300. FINDINGS: LUNGS: 2 mm calcified granuloma in the middle lobe. Minimal bilateral linear basal pulmonary atelecta sis. Unremarkable lungs otherwise. Patent central airways. No pleural effusion. MEDIASTINUM: No gross cardiomegaly. The pulmonary trunk measures 2.9 cm. Bovine aortic arch. No peric ardial effusion. No pathologically enlarged lymph nodes in the chest. OTHER: 14 mm left subscapularis muscle lipoma. No definite axillary mass identified. Please note marivel t a small axillary lipoma or fat-containing lesion cannot be excluded by this CT scan. Previous guera cystectomy. Bulky liver. No aggressive bone lesion. Degenerative changes of the thoracic spine. IMPRESSION: No definite left axillary mass or lymphadenopathy. Incidental findings as described above.
== END | disposition home or self-care (01) ==
LOC: RADCTMAIN 07:32
PROVIDERS: ATTEND Surgery
DX: R22.2 Localized swelling, mass and lump, trunk (principal)
CPT/HCPCS: 71260; Q9967

== ENCOUNTER → 2021-07-31 | Outpatient (CLI) | payer BC ==
[2021-07-31 10:36] VITALS: BP 167/113; PULSE 98; RESP 17; TEMP 97.8
--- NOTE | 2021-07-31 10:48 | P.PN ---
Subjective Progress Note Date: 07/31/21 Key is a 51-year-old white female seen in consultation for Dr. Maldonado regarding a radiographic abnormality in the left axilla. She underwent a bilateral mammogram on . Following this an ultrasound of the left axilla was recommended. The nurse have felt a 1-2 cm nodule in the left breast at the 1 to 2:00 axillary tail position. An ultrasound was then performed on the same date which revealed a 4 x 4 mm oval solid lesion connecting to a 15 mm lymph node in the axillary tail. This was personally reviewed with Dr. Zuleta. The patient noted some tenderness under her left arm but no discrete constant mass. She has not had any history of trauma or infection in either breast nor in her left arm or hand. She is not complaining of any nipple discharge or skin changes. She is not complaining of any lumps masses or nodules in either breast. This was her first mammogram. Left axillary ultrasound performed on 3321. This revealed a 0.4 cm area adjacent to a lymph node which was felt to be not especially suspicious. The recommendation was for a repeat ultrasound of the left axilla in mid July with evaluation at that time. The patient on 320 422 underwent a CAT scan of the chest and on the CAT scan no definite definite left axillary mass or lymphadenopathy was identified. We continue to recommend the ultrasound be performed in mid July. Patient at this time does not feel any lumps masses or nodules of concern and no axillary adenopathy of concern. Patient had recent 1 cm nodule left thyroid node biopsy the cytology was unsatisfactory and this is being followed by Dr. Wade. 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; at 19 gallbaldder Medical History: Rheumatoid arthritis Psoriasis carpel tunnel bilateral Hypertension Questionable hyperlipidemia Social History: nicotine: none alcohol:occasional drugs: none - Constitutional Constitutional: Denies chills, Denies fever - EENT Eyes: denies blurred vision, denies pain Ears: bilateral: tinnitus, deny: decreased hearing Ears, nose, mouth and throat: Denies headache, Denies sore throat - Breasts Breasts: bilateral: as per HPI - Cardiovascular Cardiovascular: Denies chest pain, Denies shortness of breath - Respiratory Respiratory: Denies cough, Denies 7 - Gastrointestinal Gastrointestinal: Reports constipation, Denies abdominal pain, Denies diarrhea, Denies nausea, Denies vomiting - Genitourinary (Female) Genitourinary: Denies dysuria, Denies hematuria - Menstruation Menstruation: Reports postmenopausal - Musculoskeletal Musculoskeletal: Reports as per HPI - Integumentary Comment: Psoriasis Integumentary: Reports as per HPI - Neurological Neurological: Reports as per HPI - Psychiatric Psychiatric: Denies anxiety, Denies depression - Endocrine Endocrine: Reports weight change, Denies fatigue - Hematologic/Lymphatic Comment: none - Allergic/Immunologic Allergic/Immunologic: Reports seasonal allergies At this time physical examination is declined. this patient is going to have a ultrasound of the left axilla in approximately 2 weeks and will be seen following that and an examination will be done at that time Plan: Ultrasound of the left axilla in 2 weeks with examination at that time Cc: Dr. Maldonado Objective - Vital Signs Vital signs: Vital Signs Temp 97.8 F 07/31/21 10:10 Pulse 98 07/31/21 10:10 Resp 17 07/31/21 10:10 BP 167/113 07/31/21 10:10 Pulse Ox 97 07/31/21 10:10 Intake & Output 07/30/21 07/31/21 07/31/21 18:59 06:59 18:59 Weight 136.078 kg
== END ==
LOC: WWCWWP 09:53
PROVIDERS: ATTEND Surgery
DX: R92.8 Other abnormal and inconclusive findings on diagnostic imaging of breast (principal); M06.9 Rheumatoid arthritis, unspecified; I10 Essential (primary) hypertension; L40.9 Psoriasis, unspecified; Z88.5 Allergy status to narcotic agent; Z88.1 Allergy status to other antibiotic agents

== ENCOUNTER → 2021-08-14 | Outpatient (CLI) | payer BC ==
--- NOTE | 2021-08-14 09:24 | USB ---
Reason for exam: follow-up at short interval from prior study. History: Patient is postmenopausal. US discontinued breast bx LT of the left breast, July 02, 2021. Took hormonal contraceptives for 2 years beginning at age 17. Physical Findings: A clinical breast exam by your physician is recommended on an annual basis and results should be correlated with mammographic findings. US Breast Axilla LT Left breast axilla ultrasound demonstrates a stable lymph node at the axilla. Scanned 1-2 o'clock and axilla. Results were given to the patient verbally at the time of the exam. ASSESSMENT: Benign, BI-RAD 2 RECOMMENDATION: Routine screening mammogram of both breasts in 9 months. Manage patient on a clinical basis. Back on schedule for May 2022.
[2021-08-14 09:30] VITALS: BP 160/98; PULSE 75; RESP 18; TEMP 98
== END ==
LOC: WWCWWP 08:50
PROVIDERS: ATTEND Surgery
DX: R92.8 Other abnormal and inconclusive findings on diagnostic imaging of breast (principal); Z88.5 Allergy status to narcotic agent; Z88.1 Allergy status to other antibiotic agents

== ENCOUNTER → 2021-08-14 | Outpatient (CLI) | payer BC ==
--- NOTE | 2021-08-14 09:41 | P.PN ---
Subjective Progress Note Date: 08/14/21 Principal diagnosis: Left axillary fullness Key is a 51-year-old white female seen in consultation for Dr. Maldonado regarding a radiographic abnormality in the left axilla. She underwent a bilateral mammogram on . Following this an ultrasound of the left axilla was recommended. The nurse have felt a 1-2 cm nodule in the left breast at the 1 to 2:00 axillary tail position. An ultrasound was then performed on the same date which revealed a 4 x 4 mm oval solid lesion connecting to a 15 mm lymph node in the axillary tail. This was personally reviewed with Dr. Zuleta. The patient noted some tenderness under her left arm but no discrete constant mass. She has not had any history of trauma or infection in either breast nor in her left arm or hand. She is not complaining of any nipple discharge or skin changes. She is not complaining of any lumps masses or nodules in either breast. This was her first mammogram. Left axillary ultrasound performed on 3321. This revealed a 0.4 cm area adjacent to a lymph node which was felt to be not especially suspicious. The recommendation was for a repeat ultrasound of the left axilla in mid July with evaluation at that time. The patient on 320 422 underwent a CAT scan of the chest and on the CAT scan no definite definite left axillary mass or lymphadenopathy was identified. We continue to recommend the ultrasound be performed in mid July. Patient at this time does not feel any lumps masses or nodules of concern and no axillary adenopathy of concern. 08-14-21 [place] [address]. This was reviewed with Dr. Sofia. Nothing of concern was identified. This was also compared with a CAT scan which had been done on 320 422. Again no axillary lesions of concern were identified. Patient is not complaining of any lumps masses or nodules in either axilla. She is not complaining of any tenderness in either axilla. Patient had recent 1 cm nodule left thyroid node biopsy the cytology was unsatisfactory and this is being followed by Dr. Wade. 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; at 19 gallbaldder Medical History: Rheumatoid arthritis Psoriasis carpel tunnel bilateral Hypertension Questionable hyperlipidemia Social History: nicotine: none alcohol:occasional drugs: none - Constitutional Constitutional: Denies chills, Denies fever - EENT Eyes: denies blurred vision, denies pain Ears: bilateral: tinnitus, deny: decreased hearing Ears, nose, mouth and throat: Denies headache, Denies sore throat - Breasts Breasts: bilateral: as per HPI - Cardiovascular Cardiovascular: Denies chest pain, Denies shortness of breath - Respiratory Respiratory: Denies cough - Gastrointestinal Gastrointestinal: Reports constipation, Denies abdominal pain, Denies diarrhea, Denies nausea, Denies vomiting - Genitourinary (Female) Genitourinary: Denies dysuria, Denies hematuria - Menstruation Menstruation: Reports postmenopausal - Musculoskeletal Musculoskeletal: Reports as per HPI - Integumentary Comment: Psoriasis Integumentary: Reports as per HPI - Neurological Neurological: Reports as per HPI - Psychiatric Psychiatric: Denies anxiety, Denies depression - Endocrine Endocrine: Reports weight change, Denies fatigue - Hematologic/Lymphatic Comment: none - Allergic/Immunologic Allergic/Immunologic: Reports seasonal allergies Objective - Constitutional General appearance: Present: cooperative - EENT Eyes: Present: EOMI ENT: Present: hearing grossly normal - Neck Neck: Present: normal ROM - Respiratory Respiratory: bilateral: CTA - Cardiovascular Rhythm: regular Heart sounds: normal: S1, S2 - Integumentary Integumentary: Present: normal turgor - Musculoskeletal Musculoskeletal: Present: gait normal - Psychiatric Psychiatric: Present: A&O x's 3, appropriate affect, intact judgment & insight - Additional findings Additional findings: Breast Exam: BRA: 44DD inspection: bilateral grade 3 ptosis Palpation: Right breast: Positional exam fibrocystic changes no dominant masses or nodules of concern Right axilla: No adenopathy of concern Left breast: Multi-positional exam fibrocystic changes no dominant masses or nodules of concern Left axilla: Special attention to the left axilla did not reveal any dominant masses or nodules of concern Assessment and Plan Assessment: Impression: Rheumatoid arthritis Psoriasis carpel tunnel bilateral Hypertension Questionable hyperlipidemia Ultrasound of left axilla performed today reviewed with Dr. Mcdonald from radiologyspecific lesions of concern Plan: Fibrocystic breast changes No axillary adenopathy of concern Repeat bilateral mammogram in 1 year with physician exam at that time Patient to follow up sooner if any questions or concerns CC: Dr. Maldonado
== END | disposition home or self-care (01) ==
LOC: RADUSWWP 08:47
PROVIDERS: ATTEND Surgery
DX: Z53.9 Procedure and treatment not carried out, unspecified reason (principal)

== ENCOUNTER 2021-09-15 10:27 | Emergency (ER) | payer BC ==
[2021-09-15 10:44] VITALS: TEMP 98.2
[2021-09-15 11:22] LABS: Basophils # (A) 0.1 k/uL (0-0.2); Basophils % (A) 1 %; Eosinophils # (A) 0.4 k/uL (0-0.7); Eosinophils % (A) 3 %; HGB 13.4 gm/dL (11.4-16.0); Lymphocytes # (A) 2.8 k/uL (1.0-4.8); Lymphocytes % (A) 21 %; MCH 29.1 pg (25.0-35.0); MCHC 31.9 g/dL (31.0-37.0); MCV 91.3 fL (80.0-100.0); Mean Platelet Volume 8.6; Monocytes # (A) 0.6 k/uL (0-1.0); Monocytes % (A) 4 %; Neutrophils # (A) 9.3 k/uL (1.3-7.7); Neutrophils % (A) 70 %; Platelet Count 384 k/uL (150-450); RDW 13.9 % (11.5-15.5); WBC 13.3 k/uL (3.8-10.6)
[2021-09-15 11:29] LABS: INR 0.9 (<1.2); Partial Thromboplastin Time 24.1 sec (22.0-30.0)
[2021-09-15 11:47] LABS: ALT 41 U/L (4-34); AST 42 U/L (14-36); African American GFR (CKD) >90 (>60 ml/min/1.73 sqM); Albumin 3.8 g/dL (3.5-5.0); Alkaline Phosphatase 104 U/L (38-126); Anion Gap 4 mmol/L; Blood Urea Nitrogen 8 mg/dL (7-17); Calcium 9.1 mg/dL (8.4-10.2); Carbon Dioxide 30 mmol/L (22-30); Chloride 103 mmol/L (98-107); Glucose 125 mg/dL (74-99); Magnesium 2.4 mg/dL (1.6-2.3); Non-African American GFR(CKD) >90 (>60 ml/min/1.73 sqM); Potassium 4.1 mmol/L (3.5-5.1); Sodium 137 mmol/L (137-145); Total Bilirubin 0.5 mg/dL (0.2-1.3); Total Protein 6.6 g/dL (6.3-8.2)
--- NOTE | 2021-09-15 12:03 | XR ---
EXAMINATION TYPE: XR chest 2V DATE OF EXAM: 09/15/2021 COMPARISON: 03/24/2020 HISTORY: 51-year-old female with chest pain TECHNIQUE: PA and lateral views FINDINGS: Heart normal size. Aorta and pulmonary vasculature within normal limits. Interstitial prominence is u nchanged. No consolidation, pneumothorax, or pleural effusion. IMPRESSION: Chronic changes without acute cardiopulmonary process.
[2021-09-15] MEDS ORDERED: LIDOCAINE 5% PATCH TOPICAL STA (14:05)
--- NOTE | 2021-09-15 14:06 | ED ---
General Adult HPI - General Chief complaint: Chest Pain Stated complaint: Abnormal EKG Time Seen by Provider: 09/15/21 13:51 Source: patient Mode of arrival: ambulatory Limitations: no limitations - History of Present Illness Initial comments: Dictation was produced using [employer] dictation software. please excuse any grammatical, word or spelling errors. Chief Complaint: 51-year-old female presents to the emergency department for gisele st pain and abnormal EKG History of Present Illness: Is 51-year-old female presents emergency per for chest pain and abnormal EKG. Patient states that she was with her dog yesterday when she was reaching over and felt like she popped a rib. She went to urgent care near by her primary care physician's office. She was seen by the mid- level's there is told that she had abnormality on her EKG with instructed her to come to the emergency department. Patient denies any cardiac history. He states that her mother however was diagnosed with a heart conditions in her 50s. Patient has history of hypertension. She has no history of diabetes or high cholesterol. Patient states that the pain is to her left lateral chest worse with palpation and deep inspiration. States that she is not short of breath. States that it hurts significantly when her she presses on that side. The ROS documented in this emergency department record has been reviewed and confirmed by me. Those systems with pertinent positive or negative responses have been documented in the HPI. All other systems are other negative and/or noncontributory. PHYSICAL EXAM: General Impression: Alert and oriented x3, not in acute distress HEENT: Normocephalic atraumatic, extra-ocular movements intact, pupils equal and reactive to light bilaterally, mucous membranes moist. Cardiovascular: Heart regular rate and rhythm Chest: Able to complete full sentences, no retractions, no tachypnea, pain reproduced with palpation to the left lateral chest Abdomen: abdomen soft, non-tender, non-distended, no organomegaly Musculoskeletal: Pulses present and equal in all extremities, no peripheral edema Motor: no focal deficits noted Neurological: CN II-XII grossly intact, no focal motor or sensory deficits noted Skin: Intact with no visualized rashes Psych: Normal affect and mood ED course: 51-year-old female presents emergency department for chest strain. No signs upon arrival are within acceptable limits. EKG performed from triage shows no signs of ischemia or infarction. EKG otherwise appears normal. Labs and imaging was ordered by triage nurse per HPI protocol. CBC, coag panel metabolic panel is all within acceptable limits. Troponin is normal. A chest x-ray is nonacute. Given how atypical patient's symptoms are there is no concern for acute coronary syndrome. Pain is reproducible and atypical in nature. Patient requested Lidoderm patch. She does not want any oral medications. Patient discharged advised follow-up with primary care doctor. EKG interpretation: Ventricular rate 86, sinus rhythm,. Interval 150, Q's 86, QTC 399. No OK prolongation, no QTC prolongation, no ST or T-wave changes noted. Overall, this EKG is unremarkable - Related Data Home Medications Medication Instructions Recorded Confirmed Abatacept [Orencia] 125 ml IJ ONCE 06/25/21 08/14/21 DULoxetine HCL [Cymbalta] 30 mg PO DAILY 06/25/21 08/14/21 Ergocalciferol (Vitamin D2) 1,250 mcg PO WEEKLY 06/25/21 08/14/21 [Drisdol (50,000 Iu)] Fluticasone Nasal [place] [Flonase 50 ml NASAL DAILY 06/25/21 08/14/21 Nasal [place]] Lisinopril [Prinivil] 10 mg PO DAILY 06/25/21 08/14/21 Loratadine 10 mg PO QID 06/25/21 08/14/21 Omeprazole 20 mg PO ONCE 06/25/21 08/14/21 Allergies Allergy/AdvReac Type Severity Reaction Status Date / Time codeine Allergy Swelling Verified 09/15/21 10:44 dicyclomine [From Bentyl] Allergy Rash/Hives Verified 09/15/21 10:44 morphine Allergy Swelling Verified 09/15/21 10:44 Review of Systems ROS Statement: Those systems with pertinent positive or pertinent negative responses have been documented in the HPI. ROS Other: All systems not noted in ROS Statement are negative. Past Medical History Past Medical History: Hypertension, Rheumatoid Arthritis (RA) Additional Past Medical History / Comment(s): RA and psoriasis History of Any Multi-Drug Resistant Organisms: None Reported Past Surgical History: Cholecystectomy Additional Past Surgical History / Comment(s): tubal , brain tumor removal Past Anesthesia/Blood Transfusion Reactions: No Reported Reaction Past Psychological History: No Psychological Hx Reported Smoking Status: Never smoker Past Alcohol Use History: None Reported Past Drug Use History: None Reported General Exam Limitations: no limitations Course Vital Signs 09/15/21 10:41 Temperature 98.2 F Pulse Rate 92 Respiratory 16 Rate Blood Pressure 140/92 O2 Sat by Pulse 97 Oximetry Medical Decision Making - Lab Data Result diagrams: 09/15/21 11:03 09/15/21 11:03 Lab Results 09/15/21 09/15/21 09/15/21 Range/Units 11:03 11:03 11:03 WBC 13.3 H (3.8-10.6) k/uL RBC 4.60 (3.80-5.40) m/uL Hgb 13.4 (11.4-16.0) gm/dL Hct 42.0 (34.0-46.0) % MCV 91.3 (80.0-100.0) fL MCH 29.1 (25.0-35.0) pg MCHC 31.9 (31.0-37.0) g/dL RDW 13.9 (11.5-15.5) % Plt Count 384 (150-450) k/uL MPV 8.6 Neutrophils % 70 % Lymphocytes % 21 % Monocytes % 4 % Eosinophils % 3 % Basophils % 1 % Neutrophils # 9.3 H (1.3-7.7) k/uL Lymphocytes # 2.8 (1.0-4.8) k/uL Monocytes # 0.6 (0-1.0) k/uL Eosinophils # 0.4 (0-0.7) k/uL Basophils # 0.1 (0-0.2) k/uL PT 10.0 (9.0-12.0) sec INR 0.9 (<1.2) APTT 24.1 (22.0-30.0) sec Sodium 137 (137-145) mmol/L Potassium 4.1 (3.5-5.1) mmol/L Chloride 103 (98-107) mmol/L Carbon Dioxide 30 (22-30) mmol/L Anion Gap 4 mmol/L BUN 8 (7-17) mg/dL Creatinine 0.71 (0.52-1.04) mg/dL Est GFR (CKD-EPI)AfAm >90 (>60 ml/min/1.73 sqM) Est GFR (CKD-EPI)NonAf >90 (>60 ml/min/1.73 sqM) Glucose 125 H (74-99) mg/dL Calcium 9.1 (8.4-10.2) mg/dL Magnesium 2.4 H (1.6-2.3) mg/dL Total Bilirubin 0.5 (0.2-1.3) mg/dL AST 42 H (14-36) U/L ALT 41 H (4-34) U/L Alkaline Phosphatase 104 (38-126) U/L Troponin I (0.000-0.034) ng/mL Total Protein 6.6 (6.3-8.2) g/dL Albumin 3.8 (3.5-5.0) g/dL 09/15/21 Range/Units 11:03 WBC (3.8-10.6) k/uL RBC (3.80-5.40) m/uL Hgb (11.4-16.0) gm/dL Hct (34.0-46.0) % MCV (80.0-100.0) fL MCH (25.0-35.0) pg MCHC (31.0-37.0) g/dL RDW (11.5-15.5) % Plt Count (150-450) k/uL MPV Neutrophils % % Lymphocytes % % Monocytes % % Eosinophils % % Basophils % % Neutrophils # (1.3-7.7) k/uL Lymphocytes # (1.0-4.8) k/uL Monocytes # (0-1.0) k/uL Eosinophils # (0-0.7) k/uL Basophils # (0-0.2) k/uL PT (9.0-12.0) sec INR (<1.2) APTT (22.0-30.0) sec Sodium (137-145) mmol/L Potassium (3.5-5.1) mmol/L Chloride (98-107) mmol/L Carbon Dioxide (22-30) mmol/L Anion Gap mmol/L BUN (7-17) mg/dL Creatinine (0.52-1.04) mg/dL Est GFR (CKD-EPI)AfAm (>60 ml/min/1.73 sqM) Est GFR (CKD-EPI)NonAf (>60 ml/min/1.73 sqM) Glucose (74-99) mg/dL Calcium (8.4-10.2) mg/dL Magnesium (1.6-2.3) mg/dL Total Bilirubin (0.2-1.3) mg/dL AST (14-36) U/L ALT (4-34) U/L Alkaline Phosphatase (38-126) U/L Troponin I <0.012 (0.000-0.034) ng/mL Total Protein (6.3-8.2) g/dL Albumin (3.5-5.0) g/dL Disposition Clinical Impression: Strain of chest wall Disposition: HOME SELF-CARE Condition: Good Instructions (If sedation given, give patient instructions): Costochondritis (ED) Is patient prescribed a controlled substance at d/c from ED?: No Referrals: Blayne Maldonado MD [Primary Care Provider] - 1-2 days
[2021-09-15 14:27] VITALS: BP 134/85; PULSE 86; RESP 18
== END 2021-09-15 14:27 | disposition home or self-care (01) ==
LOC: EC 10:27
DX: S29.011A Strain of muscle and tendon of front wall of thorax, initial encounter (principal); I10 Essential (primary) hypertension; Z88.5 Allergy status to narcotic agent; Z88.8 Allergy status to other drugs, medicaments and biological substances; Z79.899 Other long term (current) drug therapy; X58.XXXA Exposure to other specified factors, initial encounter
CPT/HCPCS: 36415; 71046; 80053; 83735; 84484; 85025; 85610; 85730; 93005; 99285

== ENCOUNTER → 2021-09-23 | Outpatient (CLI) | payer BC ==
--- NOTE | 2021-09-25 09:03 | CA ---
Transthoracic Echo Report Name: Key Damico Age: 51 Gender: F : 1970 Exam Date: 09/23/2021 14:03 Exam Location: [place] Echo Ht (in): 64 Wt (lb): 300 Ordering Physician: Blayne Maldonado MD Attending/Referring Phys: Dee Gruber [employer] Instructor Mitzi Mckeon RDCS Procedure CPT: Indications: R60.9 EDEMA Cardiac Hx: Morbid Obesity. Technical Quality: Fair Contrast 1: N/A Total Dose (mL): Contrast 2: Total Dose (mL): MEASUREMENTS (Male / Female) Normal Values 2D ECHO LV Diastolic Diameter PLAX 5.1 cm 4.2 - 5.9 / 3.9 - 5.3 cm LV Systolic Diameter PLAX 3.9 cm IVS Diastolic Thickness 1.3 cm 0.6 - 1.0 / 0.6 - 0.9 cm LVPW Diastolic Thickness 1.4 cm 0.6 - 1.0 / 0.6 - 0.9 cm LV Relative Wall Thickness 0.5 RV Internal Dim ED PLAX 2.8 cm M-MODE Aortic Root Diameter MM 3.4 cm LA Systolic Diameter MM 3.9 cm LA Ao Ratio MM 1.2 MV E Point Septal Separation 0.6 cm AV Cusp Separation MM 2.1 cm DOPPLER MV Area PHT 4.3 cm??? Mitral E Point Velocity 58.2 cm/s Mitral A Point Velocity 100.7 cm/s Mitral E to A Ratio 0.6 MV Deceleration Time 178.0 ms MV E' Velocity 8.7 cm/s Mitral E to MV E' Ratio 6.7 FINDINGS Left Ventricle Left ventricular ejection fraction is estimated at 50-55%. Moderately increased left ventricular wall thickness. Right Ventricle Normal right ventricular size and function. Right Atrium Normal right atrial size. Left Atrium Left atrial dilatation. Mitral Valve Mild mitral regurgitation. Aortic Valve Aortic valve not well visualized. Tricuspid Valve Tricuspid valve not well visualized. Pulmonic Valve Pulmonic valve not well visualized. Pericardium Echo free space anterior to the right ventricle likely represents a fat pad. Aorta Aortic root and proximal ascending aorta not well visualized. CONCLUSIONS Normal left ventricular dimension and systolic function See above for further details Previewed by: Dr. Joaquin Barry MD (Electronically Signed) Final Date: 25 Sep 2021 09:02
== END | disposition home or self-care (01) ==
LOC: RADECHMAIN 13:48
PROVIDERS: ATTEND Family Medicine
DX: I34.0 Nonrheumatic mitral (valve) insufficiency (principal)
CPT/HCPCS: 93306

== ENCOUNTER 2022-01-07 19:47 | Observation (INO) | payer BC ==
[2022-01-07] MEDS ORDERED: NITROGLYCERIN SL TABS 0.4 MG TAB SUBLINGUAL PRN (22:42)
[2022-01-07] MEDS ORDERED: ASPIRIN 81 MG PO STA (22:42)
--- NOTE | 2022-01-07 22:54 | ED ---
General Adult HPI - General Chief complaint: Extremity Problem,Nontraumatic Stated complaint: Possible blod clot Time Seen by Provider: 01/07/22 22:32 Source: patient, RN notes reviewed Mode of arrival: ambulatory Limitations: no limitations - History of Present Illness Initial comments: This is a pleasant 51-year-old female who presents to emergency department after developing some pain in her left thigh and calf today. Patient states that the pain is actually in the thigh. She also noticed a small bruise to the area. Patient denies any injury. While the patient was here she developed pain in the left anterior chest which radiated to the neck. Patient states this actually developed about 40 minutes ago. Patient states it feels like a dull pain. Denies any nausea or diaphoresis. This does have a history of hypertension. PATIENT states she did have a headache earlier today which was behind her left eye. This lasted for several minutes. Patient states she also had some blurred vision at that time. Patient took [id number] ibuprofen and this seemed to improve. Note that the patient has no history of headaches or ocular symptoms. This is new for her., no fever or chills, no changes in vision or hearing, no sore throat or difficulty with speech, no neck pain, no shortness of breath, no abdominal pain, no nausea or vomiting, no changes in urination or bowel movements, no numbness or tingling,, no skin rashes or lesions. Past medical, surgical, social, and family history reviewed. - Related Data Home Medications Medication Instructions Recorded Confirmed Abatacept [Orencia] 125 ml IJ ONCE 06/25/21 08/14/21 DULoxetine HCL [Cymbalta] 30 mg PO DAILY 06/25/21 08/14/21 Ergocalciferol (Vitamin D2) 1,250 mcg PO WEEKLY 06/25/21 08/14/21 [Drisdol (50,000 Iu)] Fluticasone Nasal [place] [Flonase 50 ml NASAL DAILY 06/25/21 08/14/21 Nasal [place]] Loratadine 10 mg PO QID 06/25/21 08/14/21 Omeprazole 20 mg PO ONCE 06/25/21 08/14/21 lisinopriL [Prinivil] 10 mg PO DAILY 06/25/21 08/14/21 Allergies Allergy/AdvReac Type Severity Reaction Status Date / Time codeine Allergy Swelling Verified 01/07/22 21:36 dicyclomine [From Bentyl] Allergy Rash/Hives Verified 01/07/22 21:36 morphine Allergy Swelling Verified 01/07/22 21:36 Review of Systems ROS Statement: Those systems with pertinent positive or pertinent negative responses have been documented in the HPI. ROS Other: All systems not noted in ROS Statement are negative. Past Medical History Past Medical History: Hypertension, Rheumatoid Arthritis (RA) Additional Past Medical History / Comment(s): RA and psoriasis. cardiac History of Any Multi-Drug Resistant Organisms: None Reported Past Surgical History: Cholecystectomy Additional Past Surgical History / Comment(s): tubal , brain tumor removal Past Anesthesia/Blood Transfusion Reactions: No Reported Reaction Past Psychological History: No Psychological Hx Reported Smoking Status: Never smoker Past Alcohol Use History: None Reported Past Drug Use History: None Reported General Exam - General Exam Comments Initial Comments: Vital signs reviewed, patient afebrile. Patient in no distress. Limitations: no limitations General appearance: alert, in no apparent distress, obese Head exam: Present: atraumatic, normocephalic, normal inspection Eye exam: Present: normal appearance, PERRL, EOMI. Absent: scleral icterus, conjunctival injection, periorbital swelling ENT exam: Present: normal exam, normal oropharynx, mucous membranes moist, normal external ear exam. Absent: mucous membranes dry Neck exam: Present: normal inspection, full ROM. Absent: tenderness, meningismus, lymphadenopathy Respiratory exam: Present: normal lung sounds bilaterally, chest wall tenderness. Absent: respiratory distress, wheezes, rales, rhonchi, stridor, accessory muscle use, decreased breath sounds, prolonged expiratory Cardiovascular Exam: Present: regular rate, normal rhythm, normal heart sounds. Absent: systolic murmur, diastolic murmur, rubs, gallop, clicks GI/Abdominal exam: Present: soft, normal bowel sounds. Absent: distended, tenderness, guarding, rebound, rigid Extremities exam: Present: normal inspection, full ROM, tenderness (Patient has tenderness to the medial aspect of the left thigh with some overlying bruising which is quite minimal and about 3 cm in diameter. There is no palpable cord or erythema. Homans sign is actually negative.), normal capillary refill. Absent: pedal edema, joint swelling, calf tenderness Back exam: Present: normal inspection Neurological exam: Present: alert, oriented X3, CN II-XII intact Psychiatric exam: Present: normal affect, normal mood Skin exam: Present: warm, dry, intact, normal color. Absent: rash Course Vital Signs 01/07/22 01/07/22 01/08/22 21:33 21:35 00:50 Temperature 97.9 F 98.1 F Pulse Rate 77 75 79 Respiratory 16 17 16 Rate Blood Pressure 147/85 146/88 133/92 O2 Sat by Pulse 98 97 97 Oximetry 01/08/22 02:12 Temperature Pulse Rate 70 Respiratory 20 Rate Blood Pressure O2 Sat by Pulse Oximetry - Reevaluation(s) Reevaluation #1: 01/08/22 01:38 Patient had relief of chest pain with nitroglycerin. Patient will be admitted for chest pain rule out. Aspirin was given here in the ER. - Consultations Consultation #1: Case discussed in detail with the on-call physician from [facility], Dr. Myles. Patient admitted to that service for further evaluation and disposition. EKG Findings - EKG Comments: EKG Findings:: EKG done at 2218. ED attending physician reveals possible right ventricular conduction delay with sinus rhythm, rate 73 normal intervals. Left axis deviation. No evidence of acute ST or T-wave changes. Minimal baseline artifact. When compared to previous study from August 2021 there are no significant changes. Patient does have poor R-wave progression from V2 to V3 which was also seen on the previous study. Medical Decision Making - Medical Decision Making I believe a CT of the brain is warranted as the patient has no history of significant headaches but developed a quite severe headache for several minutes earlier today with some blurred vision in left eye which resolved. She also developed chest pain here in the ER. Although the reason the patient presented was the left medial thigh pain with minimal bruising. Patient has a montage of symptomology. Patient had relief with nitroglycerin. Patient's heart score is essentially 4. Patient will be admitted for chest pain rule out. Patient showed no evidence of DVT in the left leg. Computed tomography scan of the head was negative. Patient may need further evaluation for the headache which is actually resolved. Patient was given 324 mg of aspirin in the ER. The case was discussed in detail with ED attending physician. Presentation, findings, treatment plan discussed in detail. Child And Family Counselor Dr. Diggs - Lab Data Result diagrams: 01/08/22 00:40 01/08/22 02:05 Lab Results 01/08/22 01/08/22 01/08/22 Range/Units 00:40 00:40 02:05 WBC 9.9 (3.8-10.6) k/uL RBC 4.45 (3.80-5.40) m/uL Hgb 12.6 (11.4-16.0) gm/dL Hct 40.1 (34.0-46.0) % MCV 90.1 (80.0-100.0) fL MCH 28.3 (25.0-35.0) pg MCHC 31.5 (31.0-37.0) g/dL RDW 13.7 (11.5-15.5) % Plt Count 335 (150-450) k/uL MPV 8.4 Neutrophils % 50 % Lymphocytes % 35 % Monocytes % 9 % Eosinophils % 5 % Basophils % 1 % Neutrophils # 4.9 (1.3-7.7) k/uL Lymphocytes # 3.5 (1.0-4.8) k/uL Monocytes # 0.9 (0-1.0) k/uL Eosinophils # 0.4 (0-0.7) k/uL Basophils # 0.1 (0-0.2) k/uL PT 10.2 (9.0-12.0) sec INR 0.9 (<1.2) APTT 27.0 (22.0-30.0) sec D-Dimer 0.34 (<0.60) mg/L FEU Sodium 137 (137-145) mmol/L Potassium 3.7 (3.5-5.1) mmol/L Chloride 103 (98-107) mmol/L Carbon Dioxide 24 (22-30) mmol/L Anion Gap 10 mmol/L BUN 15 (7-17) mg/dL Creatinine 0.56 (0.52-1.04) mg/dL Est GFR (CKD-EPI)AfAm >90 (>60 ml/min/1.73 sqM) Est GFR (CKD-EPI)NonAf >90 (>60 ml/min/1.73 sqM) Glucose 94 (74-99) mg/dL Calcium 9.4 (8.4-10.2) mg/dL Magnesium 2.0 (1.6-2.3) mg/dL Total Bilirubin 0.5 (0.2-1.3) mg/dL AST 32 (14-36) U/L ALT 30 (4-34) U/L Alkaline Phosphatase 97 (38-126) U/L Total Protein 6.3 (6.3-8.2) g/dL Albumin 3.8 (3.5-5.0) g/dL Disposition Clinical Impression: Chest pain, Headache, Pain of left lower extremity Disposition: ADMITTED IP TO THIS HOSP Condition: Stable Referrals: Blayne Maldonado MD [Primary Care Provider] - 1-2 days Time of Disposition: 01:39 Decision to Admit Reason: Admit from EC Decision Time: 01:39
--- NOTE | 2022-01-07 23:35 | US ---
EXAMINATION TYPE: US venous doppler duplex LE LT DATE OF EXAM: 01/07/2022 11:21 PM COMPARISON: NONE CLINICAL HISTORY: pain and swelling. left leg pain and swelling SIDE PERFORMED: Left TECHNIQUE: The lower extremity deep venous system is examined utilizing real time linear array sonog matilde with graded compression, doppler sonography and color-flow sonography. VESSELS IMAGED: Common Femoral Vein Deep Femoral Vein Greater Saphenous Vein * Femoral Vein Popliteal Vein Small Saphenous Vein * Proximal Calf Veins (* superficial vessels) Left Leg: Negative for DVT IMPRESSION: No evidence of deep vein thrombosis in the left leg.
--- NOTE | 2022-01-08 00:04 | XR ---
EXAMINATION TYPE: XR chest 2V DATE OF EXAM: 01/08/2022 COMPARISON: 09/15/2021 HISTORY: Chest pain TECHNIQUE: 2 views FINDINGS: Heart and mediastinum are normal. Lungs are clear. Diaphragm is normal. Bony thorax is inta ct. There are chest leads. IMPRESSION: Normal chest. No change
--- NOTE | 2022-01-08 00:14 | CT ---
EXAMINATION TYPE: CT brain wo con DATE OF EXAM: 01/08/2022 COMPARISON: None HISTORY: headache CT DLP: 1143.4 mGycm Automated exposure control for dose reduction was used. Ventricles of normal size. There is no mass effect nor midline shift. No sign of intracranial hemorrh age. Calvarium is intact. There is normal aeration of the mastoid sinuses. No evidence of cerebral ed emi. IMPRESSION: Negative unenhanced head CT scan.
[2022-01-08 00:51] LABS: Basophils # (A) 0.1 k/uL (0-0.2); Basophils % (A) 1 %; Eosinophils # (A) 0.4 k/uL (0-0.7); Eosinophils % (A) 5 %; HCT 40.1 % (34.0-46.0); HGB 12.6 gm/dL (11.4-16.0); Lymphocytes # (A) 3.5 k/uL (1.0-4.8); Lymphocytes % (A) 35 %; MCH 28.3 pg (25.0-35.0); MCHC 31.5 g/dL (31.0-37.0); MCV 90.1 fL (80.0-100.0); Mean Platelet Volume 8.4; Monocytes # (A) 0.9 k/uL (0-1.0); Monocytes % (A) 9 %; Neutrophils # (A) 4.9 k/uL (1.3-7.7); Neutrophils % (A) 50 %; Platelet Count 335 k/uL (150-450); RBC 4.45 m/uL (3.80-5.40); RDW 13.7 % (11.5-15.5); WBC 9.9 k/uL (3.8-10.6)
[2022-01-08 01:04] LABS: INR 0.9 (<1.2); Prothrombin Time 10.2 sec (9.0-12.0)
[2022-01-08 02:30] LABS: ALT 30 U/L (4-34); AST 32 U/L (14-36); African American GFR (CKD) >90 (>60 ml/min/1.73 sqM); Albumin 3.8 g/dL (3.5-5.0); Alkaline Phosphatase 97 U/L (38-126); Anion Gap 10 mmol/L; Blood Urea Nitrogen 15 mg/dL (7-17); Calcium 9.4 mg/dL (8.4-10.2); Carbon Dioxide 24 mmol/L (22-30); Chloride 103 mmol/L (98-107); Glucose 94 mg/dL (74-99); Non-African American GFR(CKD) >90 (>60 ml/min/1.73 sqM); Potassium 3.7 mmol/L (3.5-5.1); Sodium 137 mmol/L (137-145); Total Bilirubin 0.5 mg/dL (0.2-1.3); Total Protein 6.3 g/dL (6.3-8.2)
[2022-01-08] MEDS ORDERED: NALOXONE 0.4 MG/ML 1 ML VIAL IV PRN (02:34)
[2022-01-08] MEDS ORDERED: ONDANSETRON 4 MG/2 ML VIAL IVP PRN (02:34)
--- NOTE | 2022-01-08 05:22 | P.HPIM ---
History of Present Illness H&P Date: 01/08/22 Chief Complaint: Chest pain 51-year-old female with hypertension, obesity Patient comes in due to complaints of leg left leg pain was mainly over the thigh with some bruising on the medial aspect of the knee she denies any injuries she said the pain started suddenly today felt like cramping came in for evaluation worried about a blood clot. While in the ED venous tippler ultrasound was done was negative for acute DVT. However later she mentioned that she had a headache today around the left eye with some blurry vision. Denies any other focal neuro deficits denies any associated nausea vomiting or weakness in her extremities or any paresthesia. Denies any changes in her speech. CT of the brain was done while in the ED came back negative for any acute pathology. Patient at this time reported that she was not experiencing any pain and that was just earlier during the day. However just prior to discharging her from the ED she started complaining of left-sided chest pain radiating to the left shoulder and neck associated with some difficulty breathing and profuse sweating feeling nauseous. Then she has that she has vomited earlier today. She is also mentioning some palpitations with the chest pain. She was concerned regarding a heart attack. 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 At time of my evaluation she denies any chest pain denies any nausea vomiting denies any fevers or chills denies any upper respiratory infection symptoms denies any GI bleeding denies any abdominal pain denies any changes in bowel or urinary habits. Initial workup in the ED was unremarkable Brain computed tomography scan was negative for any acute pathology Chest x-ray showed no acute pathology Venous Doppler ultrasound left lower extremity showed no acute DVT Blood work overall unremarkable Patient denies any tobacco smoking and illicit drugs or alcohol abuse Review of Systems Pertinent positives as noted in HPI. All other systems were reviewed and are negative Past Medical History Past Medical History: Hypertension, Rheumatoid Arthritis (RA) Additional Past Medical History / Comment(s): RA and psoriasis. cardiac History of Any Multi-Drug Resistant Organisms: None Reported Past Surgical History: Cholecystectomy Additional Past Surgical History / Comment(s): tubal , brain tumor removal Past Anesthesia/Blood Transfusion Reactions: No Reported Reaction Past Psychological History: No Psychological Hx Reported Smoking Status: Never smoker Past Alcohol Use History: None Reported Past Drug Use History: None Reported - Past Family History Family Additional Family Medical History / Comment(s): Mother of coronary artery disease Medications and Allergies Home Medications Medication Instructions Recorded Confirmed Type Abatacept [Orencia] 125 ml IJ ONCE 06/25/21 08/14/21 History DULoxetine HCL [Cymbalta] 30 mg PO DAILY 06/25/21 08/14/21 History Ergocalciferol (Vitamin D2) 1,250 mcg PO WEEKLY 06/25/21 08/14/21 History [Drisdol (50,000 Iu)] Fluticasone Nasal [place] [Flonase 50 ml NASAL DAILY 06/25/21 08/14/21 History Nasal [place]] Loratadine 10 mg PO QID 06/25/21 08/14/21 History Omeprazole 20 mg PO ONCE 06/25/21 08/14/21 History lisinopriL [Prinivil] 10 mg PO DAILY 06/25/21 08/14/21 History Allergies Allergy/AdvReac Type Severity Reaction Status Date / Time codeine Allergy Swelling Verified 01/07/22 21:36 dicyclomine [From Bentyl] Allergy Rash/Hives Verified 01/07/22 21:36 morphine Allergy Swelling Verified 01/07/22 21:36 Physical Exam Vitals: Vital Signs Temp Pulse Resp BP Pulse Ox 01/08/22 04:08 84 18 163/95 95 01/08/22 02:12 70 20 01/08/22 00:50 79 16 133/92 97 01/07/22 21:35 98.1 F 75 17 146/88 97 01/07/22 21:33 97.9 F 77 16 147/85 98 Intake and Output 01/07/22 01/07/22 01/08/22 14:59 22:59 06:59 Other: Weight 132.903 kg Constitutional: No acute distress, conversant, pleasant Eyes: Anicteric sclerae, moist conjunctiva, Pupils equal round reactive to light ENMT: NC/AT Oropharynx clear, no erythema, or exudates Neck: Supple, , no masses, or JVD No carotid bruits No thyromegaly Lungs: Clear to auscultation Clear to percussion Normal respiratory effort, no accessory muscle use Cardiovascular: Heart regular in rate and rhythm, No murmurs, gallops, or rubs No peripheral edema Abdominal: Soft Nontender, no guarding, rebound or rigidity Abdomen moving with respiration Normoactive bowel sounds No hepatomegaly, No splenomegaly No palpable mass No abdominal wall hernia noted Skin: Normal temperature, tone, texture, turgor No induration No subcutaneous nodules No rash, lesions No ulcers Extremities: No digital cyanosis No clubbing Pedal pulses intact and symmetrical Radial pulses intact and symmetrical No calf tenderness Psychiatric: Alert and oriented to person, place and time Appropriate affect fair judgement Neuro Muscles Strength 5/5 in all 4 extremities Sensation to light touch grossly present throughout Cranial nerves II-XII grossly intact No focal sensory deficits Lymphatics: no palpable cervical or supraclavicular , or inguinal lymph nodes Results CBC & Chem 7: 01/08/22 00:40 01/08/22 02:05 Assessment and Plan Assessment: atypical chest pain rule out ACS EKG no acute changes CXR no acute pathology trops negative X2 hall monitor monitor vital signs ASA, statin cardiology consult A1c, lipid panel , TSH pain control Uncontrolled hypertension Resume lisinopril Finding when necessary for systolic blood pressure above 80 Morbid obesity Patient counseled regarding lifestyle modification and weight loss Hyperlipidemia continue statin DVT prophylaxis heparin subcu 3 times a day Full code
[2022-01-08] MEDS ORDERED: cloNIDine HCL 0.2 MG TAB PO PRN (05:24)
[2022-01-08] MEDS: ACETAMINOPHEN TAB 325 MG TAB PO PRN ×2 (05:31→13:04)
[2022-01-08] MEDS ORDERED: HEPARIN SODIUM,PORCINE/PF 5,000 UNIT/0.5 ML SYRINGE SQ SCH (08:00)
[2022-01-08] MEDS ORDERED: LEFLUNOMIDE 20 MG TAB PO SCH (09:00)
[2022-01-08] MEDS ORDERED: LOSARTAN 50 MG TAB PO SCH (09:00)
[2022-01-08] MEDS ORDERED: DULoxetine HCL 30 MG CAPSULE.DR PO SCH (09:00)
[2022-01-08] MEDS ORDERED: lisinopriL 10 MG TAB PO SCH (09:00)
[2022-01-08] MEDS ORDERED: METOPROLOL SUCCINATE (ER) 50 MG TAB.ER.24H PO SCH (09:00)
[2022-01-08] MEDS ORDERED: amLODIPine 5 MG TAB PO STA (09:57)
--- NOTE | 2022-01-08 11:56 | P.CRDCN ---
History of Present Illness History of present illness: - . HPI: This patient has a history of hypertension type 2 diabetes and hyperlipidemia. She comes into the hospital with complaints of somewhat atypical chest pain nondescript sharp in nature. After she arrived her blood pressure was elevated. Her diagnosis is uncontrolled hypertension atypical chest pain diabetes. Quality of pain is very atypical 3 sets of troponins are normal. I'm adding amlodipine to optimize her BP control will increase activity and she can be discharged with the clear understanding that she will need a stress test as an outpatient after blood pressure is optimized and she is tolerating a new blood pressure regimen which will include amlodipine. Explained to the patient that at presentation does not suggest acute coronary ischemia but given her risk factors she should have a stress test after BP control is optimized. At the time of my evaluation she is resting comfortably without any chest pain shortness of breath or palpitations, EKG is unremarkable for ischemia. RELEVANT PAST MEDICAL HISTORY: Benign hypertension, type 2 diabetes, hyperlipidemia, degenerative joint disease. MEDICATIONS: ALLERGIES: . REVIEW OF SYSTEMS: . PHYSICIAL EXAM: Vital signs stable no JVD blood pressure has improved it is about 160/80 no carotid bruit S1-S2 heard normally no significant murmurs or rubs lungs are clear abdomen is soft nontender lower extremities reveal normal pulses central nervous system is normal. IMPRESSION: 1. Uncontrolled hypertension. 2. Type 2 diabetes mellitus. 3. Hypercholesterolemia. 4. Atypical chest pain with negative troponins. 5. . RECOMMENDATIONS: Optimize BP control increase activity and discharge. The understanding she should have a stress test once BP control is optimized I will see her as an outpatient explained this to the patient in detail. Past Medical History Past Medical History: Hypertension, Rheumatoid Arthritis (RA) Additional Past Medical History / Comment(s): RA and psoriasis. cardiac History of Any Multi-Drug Resistant Organisms: None Reported Past Surgical History: Cholecystectomy Additional Past Surgical History / Comment(s): tubal , brain tumor removal Past Anesthesia/Blood Transfusion Reactions: No Reported Reaction Past Psychological History: No Psychological Hx Reported Smoking Status: Never smoker Past Alcohol Use History: None Reported Past Drug Use History: None Reported - Past Family History Family Additional Family Medical History / Comment(s): Mother of coronary artery disease Medications and Allergies Home Medications Medication Instructions Recorded Confirmed Type DULoxetine HCL [Cymbalta] 30 mg PO BID 06/25/21 01/08/22 History Ergocalciferol (Vitamin D2) 1,250 mcg PO FR 06/25/21 01/08/22 History [Drisdol (50,000 Iu)] Ibuprofen [Motrin] 800 mg PO Q8H PRN 01/08/22 01/08/22 History Leflunomide [Arava] 20 mg PO DAILY 01/08/22 01/08/22 History Losartan Potassium [Cozaar] 100 mg PO DAILY 01/08/22 01/08/22 History Metoprolol Succinate [Toprol XL] 50 mg PO DAILY 01/08/22 01/08/22 History Semaglutide [Ozempic] 0.25 mg SQ TH 01/08/22 01/08/22 History Allergies Allergy/AdvReac Type Severity Reaction Status Date / Time codeine Allergy Swelling Verified 01/08/22 07:21 dicyclomine [From Bentyl] Allergy Rash/Hives Verified 01/08/22 07:21 morphine Allergy Swelling Verified 01/08/22 07:21 Physical Exam Vitals: Vital Signs Temp Pulse Resp BP Pulse Ox 01/08/22 11:32 80 18 153/107 97 01/08/22 10:10 82 16 154/104 01/08/22 08:49 97.6 F 80 16 151/100 98 01/08/22 07:48 97.8 F 81 16 152/100 98 01/08/22 04:08 84 18 163/95 95 01/08/22 02:12 70 20 01/08/22 00:50 79 16 133/92 97 01/07/22 21:35 98.1 F 75 17 146/88 97 01/07/22 21:33 97.9 F 77 16 147/85 98 Intake and Output 01/07/22 01/08/22 01/08/22 22:59 06:59 14:59 Other: Weight 132.903 kg Results 01/08/22 00:40 01/08/22 02:05 Cardiac Enzymes 01/08/22 01/08/22 01/08/22 Range/Units 02:05 02:05 05:15 AST 32 (14-36) U/L Troponin I <0.012 0.013 (0.000-0.034) ng/mL 01/08/22 Range/Units 07:29 AST (14-36) U/L Troponin I <0.012 (0.000-0.034) ng/mL Coagulation 01/08/22 Range/Units 00:40 PT 10.2 (9.0-12.0) sec APTT 27.0 (22.0-30.0) sec CBC 01/08/22 Range/Units 00:40 WBC 9.9 (3.8-10.6) k/uL RBC 4.45 (3.80-5.40) m/uL Hgb 12.6 (11.4-16.0) gm/dL Hct 40.1 (34.0-46.0) % Plt Count 335 (150-450) k/uL Comprehensive Metabolic Panel 01/08/22 Range/Units 02:05 Sodium 137 (137-145) mmol/L Potassium 3.7 (3.5-5.1) mmol/L Chloride 103 (98-107) mmol/L Carbon Dioxide 24 (22-30) mmol/L BUN 15 (7-17) mg/dL Creatinine 0.56 (0.52-1.04) mg/dL Glucose 94 (74-99) mg/dL Calcium 9.4 (8.4-10.2) mg/dL AST 32 (14-36) U/L ALT 30 (4-34) U/L Alkaline Phosphatase 97 (38-126) U/L Total Protein 6.3 (6.3-8.2) g/dL Albumin 3.8 (3.5-5.0) g/dL Current Medications Generic Name Dose Route Start Last Admin Trade Name Freq PRN Reason Stop Dose Admin Acetaminophen 650 mg 01/08/22 02:34 01/08/22 05:31 Acetaminophen Tab 325 Mg Tab PO 650 mg Q6HR PRN Administration Mild Pain or Fever > 100.5 Amlodipine Besylate 5 mg 01/09/22 09:00 Amlodipine 5 Mg Tab PO DAILY DARYL Atorvastatin Calcium 40 mg 01/08/22 21:00 Atorvastatin 40 Mg Tab PO HS DARYL Clonidine 0.2 mg 01/08/22 05:24 Clonidine Hcl 0.2 Mg Tab PO QID PRN Blood Pressure - High Duloxetine HCl 30 mg 01/08/22 09:00 01/08/22 08:48 Duloxetine Hcl 30 Mg Capsule.Dr PO 30 mg BID DARYL Administration Heparin Sodium (Porcine) 5,000 unit 01/08/22 08:00 01/08/22 08:03 Heparin Sodium,Porcine/Pf 5,000 Unit/0.5 Ml Syringe SQ 5,000 unit Q8HR DARYL Administration Leflunomide 20 mg 01/08/22 09:00 01/08/22 09:47 Leflunomide 20 Mg Tab PO 20 mg DAILY DARYL Administration Lisinopril 10 mg 01/08/22 09:00 01/08/22 08:48 Lisinopril 10 Mg Tab PO Not Given DAILY DARYL Losartan Potassium 100 mg 01/08/22 09:00 01/08/22 08:48 Losartan 50 Mg Tab PO 100 mg DAILY DARYL Administration Metoprolol Succinate 50 mg 01/08/22 09:00 01/08/22 08:48 Metoprolol Succinate (Er) 50 Mg Tab.Er.24h PO 50 mg DAILY DARYL Administration Naloxone HCl 0.2 mg 01/08/22 02:34 Naloxone 0.4 Mg/Ml 1 Ml Vial IV Q2M PRN Opioid Reversal Nitroglycerin 0.4 mg 01/07/22 22:42 01/07/22 22:59 Nitroglycerin Sl Tabs 0.4 Mg Tab SUBLINGUAL 0.4 mg Q5M PRN Administration Chest Pain Ondansetron HCl 4 mg 01/08/22 02:34 Ondansetron 4 Mg/2 Ml Vial IVP Q8HR PRN Nausea And Vomiting Intake and Output 01/07/22 01/08/22 01/08/22 22:59 06:59 14:59 Other: Weight 132.903 kg 01/08/22 00:40 01/08/22 02:05
--- NOTE | 2022-01-08 13:39 | P.DS ---
Providers Date of admission: 01/08/22 03:08 Expected date of discharge: 01/08/22 Attending physician: Cristobal Myles MD Consults: 01/08/22 02:34 Consult Physician Urgent Consulting Provider: Ricardo Toth Consult Reason/Comments: Chest pain Do you want consulting provider notified?: Yes, Notify in am Primary care physician: [facility] Hospital Course: Discharge Diagnosis: Chest pain, acute coronary event ruled out. Hypertension, uncontrolled. Patient started on amlodipine in addition to daily medication regimen with losartan and metoprolol. Patient was instructed to monitor vital signs closely at home and document findings and daily log to bring with her to her next doctor's appointment therefore additional adjustments may be made to antihypertensive medication regimen to optimize blood pressure control. Left lower extremity swelling, DVT ruled out Doppler negative. Morbid obesity, recommend diet and lifestyle modifications with structured weight management program. continue Ozempic, Hospital Course: Patient is a very pleasant 51-year-old female with a past medical history of hypertension, rheumatoid arthritis, and morbid obesity. She presented to the emergency department for left lower extremity pain and swelling and left-sided chest pain. she was seen and fully evaluated in the emergency department. An EKG was completed revealing normal sinus rhythm at 73 bpm with no noted T-wave or ST abnormalities showing no signs of acute ischemia. chest x-ray negative for acute cardiopulmonary process. CT head negative for acute process. left lower extremity Doppler negative for DVT.CBC, coags, and CMP were unremarkable. D- dimer was negative at 0.34. Troponin also negative at less than 0.012. Patient was admitted under services of consultation to cardiology. troponins were trended overnight and all resulting negative at less than 0.012, 0.013, and less than 0.012. Patient was evaluated by horse wrangler recommending optimizing blood pressure control and started patient on amlodipine in addition to her daily medication regimen with losartan and metoprolol. patient is medically stable for discharge at this time. She has been provided prescription for amlodipine 5 mg daily and instructed she will need to follow up outpatient with PCP in 1-2 days and cardiology in 1 week. Patient advised to monitor blood pressure twice daily and document findings. Daily log to bring with her to her next doctor's appointment with PCP and horse wrangler as further adjustments may be needed to antihypertensive medication regimen. Physical exam: Patient seen and examined at bedside. Vital signs reviewed and stable. General: Nontoxic, no distress and appears stated age. Derm: Skin warm and dry, normal coloration for ethnicity. Head: Atraumatic, normocephalic and symmetric. Eyes: EOMs intact, no lid lag, and anicteric sclera Mouth: no lip lesions, mucus membranes moist Cardiovascular: regular rate and rhythm with normal S1S2, no murmur, positive posterior tibial pulses bilaterally, and cap refill < 2 seconds. Lungs: Respirations even, regular, and unlabored on room air. Lungs CTA bilaterally, no rhonchi, no rales, no wheezing, and no accessory muscle usage. Abdominal: soft, nontender to palpation, no guarding, no appreciable organomegaly Ext: ROM intact. No gross muscle atrophy, scant bilateral lower extremity edema, no contractures Neuro: Speech clear, face symmetrical and CN II-XII grossly intact with no noted focal neuro deficits Psych: Alert and oriented to person, place, time, and situation. Appropriate and pleasant affect. A total of 33 minutes of time were spent preparing this complex discharge summary. Pt was discharged on 01/08/22 at 1:33 PM. I reviewed the documentation as provided by the RUTHANN above, who is the original author of this note. I agree with the documented assessment and plan, with the following changes: none Patient Condition at Discharge: Stable Plan - Discharge Summary New Discharge Prescriptions: New amLODIPine [Norvasc] 5 mg PO DAILY 60 Days #60 tab Continue Ergocalciferol (Vitamin D2) [Drisdol (50,000 Iu)] 1,250 mcg PO FR DULoxetine HCL [Cymbalta] 30 mg PO BID Losartan Potassium [Cozaar] 100 mg PO DAILY Leflunomide [Arava] 20 mg PO DAILY Metoprolol Succinate [Toprol XL] 50 mg PO DAILY Ibuprofen [Motrin] 800 mg PO Q8H PRN PRN Reason: Pain Semaglutide [Ozempic] 0.25 mg SQ TH Discharge Medication List DULoxetine HCL [Cymbalta] 30 mg PO BID 06/25/21 [History] Ergocalciferol (Vitamin D2) [Drisdol (50,000 Iu)] 1,250 mcg PO FR 06/25/21 [History] Ibuprofen [Motrin] 800 mg PO Q8H PRN 01/08/22 [History] Leflunomide [Arava] 20 mg PO DAILY 01/08/22 [History] Losartan Potassium [Cozaar] 100 mg PO DAILY 01/08/22 [History] Metoprolol Succinate [Toprol XL] 50 mg PO DAILY 01/08/22 [History] Semaglutide [Ozempic] 0.25 mg SQ TH 01/08/22 [History] amLODIPine [Norvasc] 5 mg PO DAILY 60 Days #60 tab 01/08/22 [Rx] Follow up Appointment(s)/Referral(s): Wale Busch MD [STAFF PHYSICIAN] - 1 Week (please call and make appointment, follow up stress test ) Blayne Maldonado MD [Primary Care Provider] - 1-2 days (please call and make appointment ) Patient Instructions/Handouts: Angina (DC) Activity/Diet/Wound Care/Special Instructions: Activity: As tolerated. Take breaks as needed. Diet: Heart healthy and carb consistent diet. Avoid salts, or foods with hidden salts such as canned or boxed foods and frozen dinners. Extra salt makes your heart work harder and traps the fluid in your body for longer. Special Instructions: Take all of your medications as directed and remember to keep all of your doctor's appointments and follow-up as needed. You will need to monitor blood pressures daily and document findings and daily log/journal to bring with you to your next doctor's appointment as further adjustments may be needed to your blood pressure medications. Thank you for allowing us to participate in your care, it was truly a pleasure having you for our patient!!! Discharge Disposition: HOME SELF-CARE
[2022-01-08 14:45] VITALS: BP 153/90; PULSE 78; RESP 18; TEMP 97.9
[2022-01-08] MEDS ORDERED: ATORVASTATIN 40 MG TAB PO SCH (21:00)
[2022-01-09] MEDS ORDERED: amLODIPine 5 MG TAB PO SCH (09:00)
== END 2022-01-08 14:54 | disposition home or self-care (01) ==
LOC: EC 19:47 → 6NMEDSUR 01-08 03:08
PROVIDERS: ADMIT Internal Medicine; ATTEND Internal Medicine
DX: R07.89 Other chest pain (principal); I10 Essential (primary) hypertension; M79.652 Pain in left thigh; R22.42 Localized swelling, mass and lump, left lower limb; E11.9 Type 2 diabetes mellitus without complications; M06.9 Rheumatoid arthritis, unspecified; L40.9 Psoriasis, unspecified; R61 Generalized hyperhidrosis; E78.00 Pure hypercholesterolemia, unspecified; E78.5 Hyperlipidemia, unspecified; M19.90 Unspecified osteoarthritis, unspecified site; E66.01 Morbid (severe) obesity due to excess calories; Z68.43 Body mass index [BMI] 50.0-59.9, adult; Z71.3 Dietary counseling and surveillance; Z79.899 Other long term (current) drug therapy; Z88.5 Allergy status to narcotic agent; Z88.8 Allergy status to other drugs, medicaments and biological substances; Z90.49 Acquired absence of other specified parts of digestive tract; Z86.011 Personal history of benign neoplasm of the brain; Z87.59 Personal history of other complications of pregnancy, childbirth and the puerperium; Z98.890 Other specified postprocedural states; Z82.49 Family history of ischemic heart disease and other diseases of the circulatory system
CPT/HCPCS: 96372; 99285; 36415; 93005; 85379; 80053; 83735; 84484 ×2; 85025; 85610; 85730; 71046; 93971; 70450; G0378; J1644

== ENCOUNTER → 2022-05-19 | Outpatient (CLI) | payer BC ==
[2022-05-19 16:40] LABS: Eosinophils # (A) 0.39 X 10*3/uL (0.04-0.35); HCT 39.2 % (37.2-46.3); HGB 11.8 g/dL (12.0-15.0); Immature Grans, Automated 0.4 %; Lymphocytes # (A) 2.93 X 10*3/uL (0.90-5.00); Lymphocytes % (A) 29.8 %; MCHC 30.1 g/dL (32.0-37.0); MCV 96.3 fL (80.0-97.0); Mean Platelet Volume 12.7 fL (9.5-12.2); Monocytes # (A) 1.18 X 10*3/uL (0.20-1.00); NRBC Per 100 WBC 0 /100 WBCS (0.0-0.0); Neutrophils % (A) 52.8 %; Platelet Count 285 X 10*3/uL (140-440); RBC 4.07 X 10*6/uL (4.10-5.20); RDW 13.2 % (11.5-14.5); WBC 9.84 X 10*3/uL (4.50-10.00)
[2022-05-20 11:10] LABS: ALT 31 U/L (8-44); AST 31 U/L (13-35); African American GFR (CKD) 118.4 (60.0-200.0); Albumin/Globulin Ratio 1.73 (1.60-3.17); Alkaline Phosphatase 97 U/L (41-126); BUN/Creat Ratio 13.66 Ratio (12.00-20.00); Blood Urea Nitrogen 8.9 mg/dL (9.0-27.0); Calcium 9.5 mg/dL (8.7-10.3); Carbon Dioxide 23.8 mmol/L (20.0-27.5); Chloride 106 mmol/L (96-109); Chol/HDL Ratio 2.18 Ratio; Globulin 2.3 g/dL (1.6-3.3); Glucose 82 mg/dL (70-110); LDL Cholesterol,Calculated 30.5 mg/dL (0.0-131.0); Non-African American GFR(CKD) 102.2 (60.0-200.0); Sodium 141 mmol/L (135-145); Total Protein 6.4 g/dL (6.2-8.2)
== END | disposition home or self-care (01) ==
LOC: LABWHC1 08:36
PROVIDERS: ATTEND Nurse Practitioner Family
DX: Z00.01 Encounter for general adult medical examination with abnormal findings (principal); E55.9 Vitamin D deficiency, unspecified; R73.01 Impaired fasting glucose
CPT/HCPCS: 36415; 80053; 80061; 82306; 83036; 84439; 84443; 85025

== ENCOUNTER → 2022-05-19 | Outpatient (CLI) | payer BC ==
--- NOTE | 2022-05-19 08:29 | MM ---
Reason for Exam: Follow-up at short interval from prior study. Last screening mammogram was performed 12 month(s) ago. Patient History: Menarche at age 8. First Full-Term at age 27. Postmenopausal. Patient has history of breast feeding. Hormonal Contraceptives for 2 years from age 17 until age 19. 07/02/2021, US discontinued breast bx LT on the left side. Risk Values: Emilee 5 year model risk: 1.3%. NCI Lifetime model risk: 10.5%. Prior Study Comparison: 05/13/2021 Bilateral Diagnostic Mammogram, [facility]. 05/13/2021 Left Diagnostic Ultrasound, [facility]. 08/14/2021 Left Diagnostic Ultrasound, [facility]. Tissue Density: The breast tissue is almost entirely fat. Findings: Analyzed By CAD. No suspicious masses, calcifications or distortions. No significant change from prior. Overall Assessment: Negative, BI-RAD 1 Management: Screening Mammogram of both breasts in 1 year. A clinical breast exam by your physician is recommended on an annual basis and results should be correlated with mammographic findings. This exam should not preclude additional follow-up of suspicious palpable abnormalities. Results were given to the patient verbally at the time of exam. Electronically signed and approved by: Karel Billy DO
== END | disposition home or self-care (01) ==
LOC: RADMAMWWP 08:03
PROVIDERS: ATTEND Surgery
DX: R92.8 Other abnormal and inconclusive findings on diagnostic imaging of breast (principal); Z78.0 Asymptomatic menopausal state
CPT/HCPCS: 77062; 77066

== ENCOUNTER 2023-02-06 13:41 | Emergency (ER) | payer BC ==
--- NOTE | 2023-02-06 13:59 | ED ---
Recheck HPI - General Source: patient, RN notes reviewed Mode of arrival: wheelchair Limitations: no limitations - History of Present Illness MD Complaint: other (Elevated BP) <Bonny Peralta - Last Filed: 02/06/23 13:56> <Karel Callahan Brady - Last Filed: 02/06/23 17:34> - General Chief Complaint: Recheck/Abnormal Lab/Rx Stated Complaint: High BP Time Seen by Provider: 02/06/23 13:56 - History of Present Illness Initial Comments: This is a 52 year old female who presents to the emergency department for elevated blood pressure. States that over the last 3-4 days, her blood pressure has become increasingly elevated, and she is now developing a tightness in her chest and a headache. She is taking Losartan for BP and has been compliant with her medication. She was at urgent care earlier today, and states that it was 211/111, and they instructed her to come to the emergency department. (Bonny Peralta) - Related Data Home Medications Medication Instructions Recorded Confirmed DULoxetine HCL [Cymbalta] 30 mg PO BID 06/25/21 09/03/22 Ergocalciferol (Vitamin D2) 1,250 mcg PO FR 06/25/21 09/03/22 [Drisdol (50,000 Iu)] Ibuprofen [Motrin] 800 mg PO Q8H PRN 01/08/22 09/03/22 Leflunomide [Arava] 20 mg PO DAILY 01/08/22 09/03/22 Losartan Potassium [Cozaar] 100 mg PO DAILY 01/08/22 09/03/22 Metoprolol Succinate [Toprol XL] 50 mg PO DAILY 01/08/22 09/03/22 Semaglutide [Ozempic] 0.25 mg SQ TH 01/08/22 09/03/22 Previous Rx's Medication Instructions Recorded amLODIPine [Norvasc] 5 mg PO DAILY #30 tab 02/06/23 Allergies Allergy/AdvReac Type Severity Reaction Status Date / Time codeine Allergy Swelling Verified 09/03/22 08:56 dicyclomine [From Bentyl] Allergy Rash/Hives Verified 09/03/22 08:56 morphine Allergy Swelling Verified 09/03/22 08:56 Review of Systems ROS Other: All systems not noted in ROS Statement are negative. <Bonny Peralta - Last Filed: 02/06/23 13:56> ROS Other: All systems not noted in ROS Statement are negative. <Karel Callahan - Last Filed: 02/06/23 17:34> ROS Statement: Those systems with pertinent positive or pertinent negative responses have been documented in the HPI. Past Medical History Past Medical History: Hypertension, Rheumatoid Arthritis (RA) Additional Past Medical History / Comment(s): RA and psoriasis. cardiac History of Any Multi-Drug Resistant Organisms: None Reported Past Surgical History: Cholecystectomy Additional Past Surgical History / Comment(s): tubal , brain tumor removal Past Anesthesia/Blood Transfusion Reactions: No Reported Reaction Past Psychological History: No Psychological Hx Reported Smoking Status: Never smoker Past Alcohol Use History: None Reported Past Drug Use History: None Reported - Past Family History Family Additional Family Medical History / Comment(s): Mother of coronary artery disease <YawmaluterryBonny - Last Filed: 02/06/23 13:56> General Exam <YawmaluterryBonny - Last Filed: 02/06/23 13:56> General appearance: alert, in no apparent distress Head exam: Present: atraumatic, normocephalic Eye exam: Present: normal appearance, PERRL ENT exam: Present: normal exam Neck exam: Present: normal inspection. Absent: tenderness, meningismus Respiratory exam: Present: normal lung sounds bilaterally. Absent: respiratory distress, wheezes Cardiovascular Exam: Present: regular rate. Absent: normal rhythm, bradycardia GI/Abdominal exam: Present: soft. Absent: distended, tenderness, guarding Extremities exam: Present: normal inspection, normal capillary refill. Absent: pedal edema Neurological exam: Present: alert, oriented X3, CN II-XII intact. Absent: motor sensory deficit Psychiatric exam: Present: normal affect, normal mood Skin exam: Present: warm, dry, intact. Absent: cyanosis, diaphoretic <Karel Callahan - Last Filed: 02/06/23 17:34> - General Exam Comments Initial Comments: Visual Physical Exam Vital signs reviewed General: Well-appearing, nontoxic, no acute distress. Head: Normocephalic, atraumatic Eyes: PERRLA, EOMI ENT: Airway patent Chest: Nonlabored breathing Skin: No visual rash, normal skin tone Neuro: Alert and oriented 3 Musculoskeletal: No gross abnormalities I performed the QuickNote portion of this chart. Signed Bonny Peralta PA-C. (Bonny Peralta) Course Vital Signs 02/06/23 13:57 Temperature 98.7 F Pulse Rate 79 Respiratory 16 Rate Blood Pressure 188/100 O2 Sat by Pulse 99 Oximetry Medical Decision Making - Lab Data Result diagrams: 02/06/23 14:23 02/06/23 14:23 <Karel Callahan N - Last Filed: 02/06/23 17:34> - Medical Decision Making Was pt. sent in by a medical professional or institution (DEJUAN Sorensen, LAMINATE FLOOR INSTALLER, urgent care, hospital, or jail...) When possible be specific @ -No Did you speak to anyone other than the patient for history (EMS, parent, family, police, friend...)? What history was obtained from this source @ -No Did you review nursing and triage notes (agree or disagree)? Why? @ -I reviewed and agree with nursing and triage notes Were old charts reviewed (outside hosp., previous admission, EMS record, old EKG, old radiological studies, urgent care reports/EKG's, jail records)? Report findings @ -No old charts were reviewed Differential Diagnosis (chest pain, altered mental status, abdominal pain women, abdominal pain men, vaginal bleeding, weakness, fever, dyspnea, syncope, headache, dizziness, GI bleed, back pain, seizure, CVA, palpatations, mental health, musculoskeletal)? @ -ACS, accelerated hypertension, hypertensive urgency EKG interpreted by me (3pts min.). @ -As above sinus rhythm with a rate of 72, MI interval 151, QRS duration 87, QTC 416, no ST segment elevation. interpreted by me (1pt min.). @ -None done CT interpreted by me (1pt min.). @ -None done U/S interpreted by me (1pt. min.). @ -None done What testing was considered but not performed or refused? (CT, X-rays, U/S, labs)? Why? @ -None What meds were considered but not given or refused? Why? @ -None Did you discuss the management of the patient with other professionals (professionals i.e. DEJUAN Sorensen, LAMINATE FLOOR INSTALLER, lab, RT, psych nurse, director of social services, catalyst plant supervisor, teacher, security officer, ed case manager)? Give summary @ -No Was smoking cessation discussed for >3mins.? @ -No Was critical care preformed (if so, how long)? @ -No Were there social determinants of health that impacted care today? How? (H omelessness, low income, unemployed, alcoholism, drug addiction, transportation, low edu. Level, literacy, decrease access to med. care, fdc, rehab)? @ -No Was there de-escalation of care discussed even if they declined (Discuss DNR or withdrawal of care, Hospice)? DNR status @ -No What co-morbidities impacted this encounter? (DM, HTN, Smoking, COPD, CAD, Cancer, CVA, ARF, Chemo, Hep., AIDS, mental health diagnosis, sleep apnea, morbid obesity)? @ -Hypertension, diabetes Was patient admitted / discharged? Hospital course, mention meds given and route, prescriptions, significant lab abnormalities, going to OR and other pertinent info. @ -52-year-old female with several weeks of elevated blood pressure. Patient currently on losartan and metoprolol. She has been compliant with her medications. She has a scheduled appointment to see her mainframe developer on . She reports vague chest tightness with no central chest pain. No focal numbness or weakness. No abdominal pain. No vomiting. She has been eating and drinking normally. She states she is moderately active. Laboratory studies were obtained as well as EKG and chest x-ray. This testing is unremarkable in the emergency department. She'll be started on Norvasc, given her first dose emergency department and given prescription for Norvasc she'll follow with her mainframe developer on Tuesday which is 48 hours. She should return to the emergency department with any worsening or changing symptoms. Undiagnosed new problem with uncertain prognosis? @ -No Drug Therapy requiring intensive monitoring for toxicity (Heparin, Nitro, Insulin, Cardizem)? @ -No Were any procedures done? @ -No Diagnosis/symptom? @ Hypertension Acute, or Chronic, or Acute on Chronic? @ -Acute chronic Uncomplicated (without systemic symptoms) or Complicated (systemic symptoms)? @ Complicated Side effects of treatment? @ -No Exacerbation, Progression, or Severe Exacerbation? @ -No Poses a threat to life or bodily function? How? (Chest pain, [place], [place], pneumonia, PE, COPD, DKA, ARF, appy, cholecystitis, CVA, Diverticulitis, Homicidal, Suicidal, threat to staff... and all critical care pts) @ -[Low risk at this time (Karel Callahan) - Lab Data Lab Results 02/06/23 02/06/23 02/06/23 Range/Units 14:23 14:23 14:23 WBC 8.4 (3.8-10.6) k/uL RBC 4.10 (3.80-5.40) m/uL Hgb 12.6 (11.4-16.0) gm/dL Hct 37.5 (34.0-46.0) % MCV 91.5 (80.0-100.0) fL MCH 30.8 (25.0-35.0) pg MCHC 33.7 (31.0-37.0) g/dL RDW 12.8 (11.5-15.5) % Plt Count 238 (150-450) k/uL MPV 9.5 Neutrophils % 52 % Lymphocytes % 34 % Monocytes % 7 % Eosinophils % 6 % Basophils % 1 % Neutrophils # 4.3 (1.3-7.7) k/uL Lymphocytes # 2.8 (1.0-4.8) k/uL Monocytes # 0.6 (0-1.0) k/uL Eosinophils # 0.5 (0-0.7) k/uL Basophils # 0.1 (0-0.2) k/uL PT 10.0 (9.0-12.0) sec INR 0.9 (<1.2) APTT 26.5 (22.0-30.0) sec Sodium 140 (137-145) mmol/L Potassium 4.0 (3.5-5.1) mmol/L Chloride 105 (98-107) mmol/L Carbon Dioxide 27 (22-30) mmol/L Anion Gap 8 mmol/L BUN 11 (7-17) mg/dL Creatinine 0.55 (0.52-1.04) mg/dL Est GFR (CKD-EPI)AfAm >90 (>60 ml/min/1.73 sqM) Est GFR (CKD-EPI)NonAf >90 (>60 ml/min/1.73 sqM) Glucose 95 (74-99) mg/dL Calcium 9.6 (8.4-10.2) mg/dL Magnesium 2.0 (1.6-2.3) mg/dL Total Bilirubin 0.6 (0.2-1.3) mg/dL AST 35 (14-36) U/L ALT 26 (4-34) U/L Alkaline Phosphatase 110 (38-126) U/L Troponin I (0.000-0.034) ng/mL Total Protein 7.2 (6.3-8.2) g/dL Albumin 4.2 (3.5-5.0) g/dL 02/06/23 Range/Units 14:23 WBC (3.8-10.6) k/uL RBC (3.80-5.40) m/uL Hgb (11.4-16.0) gm/dL Hct (34.0-46.0) % MCV (80.0-100.0) fL MCH (25.0-35.0) pg MCHC (31.0-37.0) g/dL RDW (11.5-15.5) % Plt Count (150-450) k/uL MPV Neutrophils % % Lymphocytes % % Monocytes % % Eosinophils % % Basophils % % Neutrophils # (1.3-7.7) k/uL Lymphocytes # (1.0-4.8) k/uL Monocytes # (0-1.0) k/uL Eosinophils # (0-0.7) k/uL Basophils # (0-0.2) k/uL PT (9.0-12.0) sec INR (<1.2) APTT (22.0-30.0) sec Sodium (137-145) mmol/L Potassium (3.5-5.1) mmol/L Chloride (98-107) mmol/L Carbon Dioxide (22-30) mmol/L Anion Gap mmol/L BUN (7-17) mg/dL Creatinine (0.52-1.04) mg/dL Est GFR (CKD-EPI)AfAm (>60 ml/min/1.73 sqM) Est GFR (CKD-EPI)NonAf (>60 ml/min/1.73 sqM) Glucose (74-99) mg/dL Calcium (8.4-10.2) mg/dL Magnesium (1.6-2.3) mg/dL Total Bilirubin (0.2-1.3) mg/dL AST (14-36) U/L ALT (4-34) U/L Alkaline Phosphatase (38-126) U/L Troponin I <0.012 (0.000-0.034) ng/mL Total Protein (6.3-8.2) g/dL Albumin (3.5-5.0) g/dL Disposition <Bonny Peralta - Last Filed: 02/06/23 13:56> Is patient prescribed a controlled substance at d/c from ED?: No Time of Disposition: 17:34 <Karel Callahan - Last Filed: 02/06/23 17:34> Clinical Impression: Hypertension Disposition: HOME SELF-CARE Condition: Fair Instructions (If sedation given, give patient instructions): Hypertension (ED) Prescriptions: amLODIPine [Norvasc] 5 mg PO DAILY #30 tab Referrals: Blayne Maldonado MD [Primary Care Provider] - 1-2 days
[2023-02-06 14:05] VITALS: RESP 16
[2023-02-06 14:38] LABS: Basophils # (A) 0.1 k/uL (0-0.2); Basophils % (A) 1 %; Eosinophils # (A) 0.5 k/uL (0-0.7); Eosinophils % (A) 6 %; HCT 37.5 % (34.0-46.0); HGB 12.6 gm/dL (11.4-16.0); Lymphocytes # (A) 2.8 k/uL (1.0-4.8); Lymphocytes % (A) 34 %; MCH 30.8 pg (25.0-35.0); MCHC 33.7 g/dL (31.0-37.0); MCV 91.5 fL (80.0-100.0); Mean Platelet Volume 9.5; Monocytes # (A) 0.6 k/uL (0-1.0); Monocytes % (A) 7 %; Neutrophils # (A) 4.3 k/uL (1.3-7.7); Neutrophils % (A) 52 %; Platelet Count 238 k/uL (150-450); RDW 12.8 % (11.5-15.5); WBC 8.4 k/uL (3.8-10.6)
[2023-02-06 14:49] LABS: INR 0.9 (<1.2); Partial Thromboplastin Time 26.5 sec (22.0-30.0)
[2023-02-06 14:51] LABS: ALT 26 U/L (4-34); AST 35 U/L (14-36); African American GFR (CKD) >90 (>60 ml/min/1.73 sqM); Albumin 4.2 g/dL (3.5-5.0); Alkaline Phosphatase 110 U/L (38-126); Anion Gap 8 mmol/L; Blood Urea Nitrogen 11 mg/dL (7-17); Calcium 9.6 mg/dL (8.4-10.2); Carbon Dioxide 27 mmol/L (22-30); Chloride 105 mmol/L (98-107); Glucose 95 mg/dL (74-99); Non-African American GFR(CKD) >90 (>60 ml/min/1.73 sqM); Sodium 140 mmol/L (137-145); Total Bilirubin 0.6 mg/dL (0.2-1.3); Total Protein 7.2 g/dL (6.3-8.2)
--- NOTE | 2023-02-06 14:59 | XR ---
EXAMINATION TYPE: XR chest 2V DATE OF EXAM: 02/06/2023 COMPARISON: 09/15/2021 HISTORY: Chest pain TECHNIQUE: Frontal and lateral views of the chest are obtained. FINDINGS: There is no focal air space opacity, pleural effusion, or pneumothorax seen. The cardiac silhouette size is within normal limits. The osseous structures are intact. IMPRESSION: No acute cardiopulmonary process.
[2023-02-06] MEDS ORDERED: amLODIPine 5 MG TAB PO STA (17:30)
[2023-02-06 18:20] VITALS: BP 150/110; PULSE 75
[2023-02-06 18:33] VITALS: TEMP 98.2
== END 2023-02-06 18:32 | disposition home or self-care (01) ==
LOC: EC 13:41
DX: I10 Essential (primary) hypertension (principal); Z79.899 Other long term (current) drug therapy; Z88.5 Allergy status to narcotic agent; Z88.8 Allergy status to other drugs, medicaments and biological substances
CPT/HCPCS: 36415; 71046; 80053; 83735; 84484; 85025; 85610; 85730; 93005; 99284

== ENCOUNTER → 2023-05-20 | Outpatient (CLI) | payer BC ==
--- NOTE | 2023-05-20 07:42 | MM ---
Reason for Exam: Follow-up at short interval from prior study. Last screening mammogram was performed 12 month(s) ago. Patient History: Menarche at age 8. First Full-Term at age 27. Postmenopausal. Patient has history of breast feeding. Hormonal Contraceptives for 2 years from age 17 until age 19. 07/02/2021, US discontinued breast bx LT on the left side. Risk Values: Emilee 5 year model risk: 1.3%. NCI Lifetime model risk: 10.3%. Tissue Density: There are scattered fibroglandular densities. Findings: Analyzed By CAD. No significant change from prior exams. Overall Assessment: Incomplete: need additional imaging evaluation, BI-RAD 0 Management: Diagnostic Breast Ultrasound of the left breast. Axilla at the previous palpable site and previously seen 3 mm nodule. Electronically signed and approved by: Nelida Zuleta M.D. Radiologist
--- NOTE | 2023-05-20 08:30 | USB ---
Reason for Exam: Follow-up at short interval from prior study. Patient History: Menarche at age 8. First Full-Term at age 27. Postmenopausal. Patient has history of breast feeding. Hormonal Contraceptives for 2 years from age 17 until age 19. 07/02/2021, US discontinued breast bx LT on the left side. Risk Values: Emilee 5 year model risk: 1.3%. NCI Lifetime model risk: 10.3%. Technique: Method: Targeted. Prior Study Comparison: 05/13/2021 Bilateral Diagnostic Mammogram, [facility]. 05/19/2022 Bilateral MG 3D diag mammo w/cad RINKU, [facility]. Findings: The axilla of the left breast was scanned. Targeted ultrasound left axilla at the patient's previous palpable site. There is a redemonstrated prominent but benign-appearing 2.6 cm long axis lymph node. A small area of hypoechoic circumscribed nodularity along the margin of the lymph node measuring 5 mm is redemonstrated. This remains unchanged for 2 years. No other solid or cystic lesion. Overall Assessment: Benign, BI-RAD 2 Management: Screening Mammogram of both breasts in 1 year. A clinical breast exam by your physician is recommended on an annual basis and results should be correlated with mammographic findings. This exam should not preclude additional follow-up of suspicious palpable abnormalities. Results were given to the patient verbally at the time of exam. Electronically signed and approved by: Nelida Zuleta M.D. Radiologist
== END | disposition home or self-care (01) ==
LOC: RADMAMWWP 07:03
PROVIDERS: ATTEND Surgery
DX: Z00.00 Encounter for general adult medical examination without abnormal findings (principal); R92.323 Mammographic fibroglandular density, bilateral breasts; N63.20 Unspecified lump in the left breast, unspecified quadrant; E11.9 Type 2 diabetes mellitus without complications; Z78.0 Asymptomatic menopausal state
CPT/HCPCS: 77062; 77066

== ENCOUNTER → 2023-05-30 | Outpatient (CLI) | payer BC ==
--- NOTE | 2023-05-30 13:57 | CT ---
EXAMINATION TYPE: CT brain sinine wo con DATE OF EXAM: 05/30/2023 COMPARISON: 01/08/2022 HISTORY: Fall CT DLP: 2013 mGycm, Automated exposure control for dose reduction was used. CONTRAST: None CT of the brain is performed utilizing 3 mm thick sections through the posterior fossa and 3 mm thick sections through the remaining calvarium. Study is performed within 24 hours of arrival to the hospital. No abnormal hyperdensity is present to suggest an acute intracranial hemorrhage. No mass lesion is evident. No acute infarcts are evident. Ventricles and sulci are appropriate for the patient age. Paranasal sinuses and mastoid air cells within the [id number] are clear. IMPRESSIONS: 1. No acute intracranial process. Follow-up MRI can be performed as clinically indicated. CT cervical spine. COMPARISON: None CT of the cervical spine is performed in the axial plane at 2 mm thick sections. Reconstructed image s in the coronal, and sagittal plane are reviewed on the computer. No acute fractures are evident. Vertebral body alignment is normal. Disc heights are preserved. Vertebral body heights are preserved. No spinal canal stenosis is evident. No neural foraminal stenosis is evident. IMPRESSION: 1. No acute osseous abnormality cervical spine.
--- NOTE | 2023-05-30 16:30 | XR ---
EXAMINATION TYPE: XR knee complete RT DATE OF EXAM: 05/30/2023 COMPARISON: None HISTORY: Fall TECHNIQUE: Three-view right knee FINDINGS: No acute fracture or dislocation is evident. Joint spaces are preserved. Soft tissues are n ormal. No joint effusion is evident. Follow up exams can be performed 7-10 days from acute trauma for continued pain. IMPRESSION: 1. No acute osseous abnormality right knee.
--- NOTE | 2023-05-30 17:04 | XR ---
EXAMINATION TYPE: XR shoulder complete RT DATE OF EXAM: 05/30/2023 COMPARISON: NONE HISTORY: Pain TECHNIQUE: Shoulder examined in 3 projections. FINDINGS: The humeral head articulates with the glenoid. The acromio-clavicular junction is normal. No acute fractures or dislocations are evident. A follow up study can be performed 7-10 days from acute trauma for continued pain. MRI can be perfor med if soft tissue evaluation would be of benefit. IMPRESSION: 1. No acute osseous shoulder abnormality.
--- NOTE | 2023-05-30 17:05 | XR ---
EXAMINATION TYPE: XR wrist complete RT DATE OF EXAM: 05/30/2023 COMPARISON: None HISTORY: Fall, pain TECHNIQUE: 4 view right wrist FINDINGS: No acute fracture or dislocation is evident. Soft tissues appear normal. Joint spaces appea r preserved. Follow up exams can be performed 7-10 days from acute trauma for continued pain. Medicine bone scan c an be performed if there is pain at the anatomic snuffbox. IMPRESSION: 1. No acute osseous abnormality right wrist
== END | disposition home or self-care (01) ==
LOC: RADCTMAIN 12:37
PROVIDERS: ATTEND Internal Medicine
DX: G44.319 Acute post-traumatic headache, not intractable (principal); M54.2 Cervicalgia; M25.511 Pain in right shoulder; M25.531 Pain in right wrist; W19.XXXA Unspecified fall, initial encounter
CPT/HCPCS: 70450; 72125

== ENCOUNTER → 2023-09-29 | Outpatient (CLI) | payer BC ==
[2023-09-29 22:29] LABS: Anti-Smith Ab Interp Negative (Negative)
== END | disposition home or self-care (01) ==
LOC: LABWHC1 11:59
PROVIDERS: ATTEND Internal Medicine Cardiovascular Disease
DX: Z51.81 Encounter for therapeutic drug level monitoring (principal); N18.31 Chronic kidney disease, stage 3a; D63.1 Anemia in chronic kidney disease; L40.50 Arthropathic psoriasis, unspecified; E55.9 Vitamin D deficiency, unspecified; E78.49 Other hyperlipidemia; E66.01 Morbid (severe) obesity due to excess calories; E03.1 Congenital hypothyroidism without goiter; R73.01 Impaired fasting glucose; Z79.899 Other long term (current) drug therapy
CPT/HCPCS: 36415; 86235

== ENCOUNTER → 2023-09-29 | Outpatient (CLI) | payer BC ==
--- NOTE | 2023-09-29 13:15 | XR ---
EXAMINATION TYPE: XR shoulder complete LT DATE OF EXAM: 09/29/2023 COMPARISON: NONE HISTORY: Pain TECHNIQUE: Shoulder examined in 3 projections. FINDINGS: The humeral head articulates with the glenoid. The acromio-clavicular junction is normal. No acute fractures or dislocations are evident. A follow up study can be performed 7-10 days from acute trauma for continued pain. MRI can be perfor med if soft tissue evaluation would be of benefit. IMPRESSION: 1. No acute osseous shoulder abnormality.
== END | disposition home or self-care (01) ==
LOC: RADXRMAIN 12:45
PROVIDERS: ATTEND Internal Medicine
DX: M25.512 Pain in left shoulder (principal)

== ENCOUNTER → 2023-10-05 | Outpatient (CLI) | payer BC ==
[2023-10-05 16:27] LABS: HCT 37.1 % (37.2-50.0); HGB 11.8 g/dL (12.0-17.0); MCH 29.1 pg (27.0-32.0); MCHC 31.8 g/dL (32.0-37.0); MCV 91.4 FL (80.0-97.0); NRBC Per 100 WBC 0 X 10*3/uL (0.00-0.01); Platelet Count 389 X 10*3/uL (140-440); RBC 4.06 X 10*6/uL (4.10-5.60); RDW 14.2 % (11.5-14.5); WBC 10.95 X 10*3/uL (4.50-10.00)
[2023-10-05 17:07] LABS: NT-Pro-B-Type Natriuretic Pept 105 pg/mL (0-125)
[2023-10-05 17:16] LABS: ALT 18 U/L (8-49); AST 17 U/L (13-35); Albumin 4.3 g/dL (3.8-4.9); Albumin/Globulin Ratio 1.95 Ratio (1.60-3.17); Alkaline Phosphatase 123 U/L (41-126); BUN/Creat Ratio 13.88 Ratio (12.00-20.00); Blood Urea Nitrogen 11.1 mg/dL (9.0-27.0); Calcium 9.9 mg/dL (8.7-10.3); Carbon Dioxide 23.5 mmol/L (21.6-31.8); Chloride 106 mmol/L (96-109); Chol/HDL Ratio 1.83 Ratio; Globulin 2.2 g/dL (1.6-3.3); Glucose 89 mg/dL (70-110); LDL Cholesterol,Calculated 30.6 mg/dL (0.0-131.0); Potassium 4.4 mmol/L (3.5-5.5); Sodium 144 mmol/L (135-145); Total Bilirubin 0.4 mg/dL (0.3-1.2); Total Protein 6.5 g/dL (6.2-8.2)
[2023-10-05 18:27] LABS: Magnesium 2.1 mg/dL (1.5-2.4)
== END | disposition home or self-care (01) ==
LOC: LABWHC1 08:58
PROVIDERS: ATTEND Internal Medicine Cardiovascular Disease
DX: E66.01 Morbid (severe) obesity due to excess calories (principal); N18.31 Chronic kidney disease, stage 3a; D63.1 Anemia in chronic kidney disease; E03.1 Congenital hypothyroidism without goiter; E78.49 Other hyperlipidemia; E55.9 Vitamin D deficiency, unspecified; R73.01 Impaired fasting glucose
CPT/HCPCS: 36415; 80053; 80061; 82306; 83036; 83735; 83880; 84439; 84443; 85027

== ENCOUNTER → 2024-03-28 | Outpatient (CLI) | payer BC ==
[2024-03-28 18:51] LABS: ALT 111 U/L (8-49); AST 75 U/L (13-35); Albumin 4.3 g/dL (3.8-4.9); Albumin/Globulin Ratio 1.95 Ratio (1.60-3.17); Alkaline Phosphatase 183 U/L (41-126); BUN/Creat Ratio 22.67 Ratio (12.00-20.00); Blood Urea Nitrogen 13.6 mg/dL (9.0-27.0); Calcium 9.6 mg/dL (8.7-10.3); Carbon Dioxide 24.5 mmol/L (21.6-31.8); Chloride 108 mmol/L (96-109); Globulin 2.2 g/dL (1.6-3.3); Glucose 105 mg/dL (70-110); Potassium 4.6 mmol/L (3.5-5.5); Sodium 141 mmol/L (135-145); Total Bilirubin 0.3 mg/dL (0.3-1.2); Total Protein 6.5 g/dL (6.2-8.2)
[2024-03-28 19:11] LABS: Eosinophils # (A) 0.42 X 10*3/uL (0.04-0.35); Eosinophils % (A) 4.1 %; HCT 39.2 % (37.2-50.0); HGB 12.6 g/dL (12.0-17.0); Lymphocytes % (A) 33.6 %; MCHC 32.1 g/dL (32.0-37.0); MCV 96.6 FL (80.0-97.0); Mean Platelet Volume 12.3 FL (9.5-12.2); Monocytes % (A) 6.9 %; NRBC Per 100 WBC 0 X 10*3/uL (0.00-0.01); Neutrophils # (A) 5.48 X 10*3/uL (1.80-7.70); Neutrophils % (A) 54.1 %; Platelet Count 288 X 10*3/uL (140-440); RBC 4.06 X 10*6/uL (4.10-5.60); RDW 14.3 % (11.5-14.5); WBC 10.13 X 10*3/uL (4.50-10.00)
== END | disposition home or self-care (01) ==
LOC: LABWHC1 14:03
PROVIDERS: ATTEND Internal Medicine
DX: I10 Essential (primary) hypertension (principal); Z86.39 Personal history of other endocrine, nutritional and metabolic disease
CPT/HCPCS: 36415; 80053; 85025

== ENCOUNTER → 2024-03-28 | Outpatient (CLI) | payer BC ==
--- NOTE | 2024-03-29 08:51 | US ---
EXAMINATION TYPE: US thyroid st tissue head/neck DATE OF EXAM: 03/28/2024 COMPARISON: EXAMINATION TYPE: US thyroid st tissue head/neck DATE OF EXAM: 03/28/2024 COMPARISON: NONE CLINICAL INDICATION: Female, 53 years old with history of R22.1 NECK MASS; Neck lump TECHNIQUE: FINDINGS: Complex area seen mid neck measuring 1.2 x 1.1 x 1.3 cm. IMPRESSION: Complex nodule noted At the site of clinical concern. Correlate clinically in the standard contrast CT of the neck is jered mmended. [facility], , 03/29/2024 8:49 AM
== END | disposition home or self-care (01) ==
LOC: RADUSWWP 14:14
PROVIDERS: ATTEND Internal Medicine
DX: R22.1 Localized swelling, mass and lump, neck (principal); E04.1 Nontoxic single thyroid nodule
CPT/HCPCS: 76536

== ENCOUNTER → 2024-04-06 | Outpatient (CLI) | payer BC ==
[2024-04-06 13:12] VITALS: BP 145/71; PULSE 66; RESP 17; TEMP 98.6
--- NOTE | 2024-04-06 13:52 | P.PN ---
Subjective Progress Note Date: 04/06/24 Subjective Progress Note Date: 04-06-24 Principal diagnosis: fibrocystic breast disease Left axillary fullness Key is a 51-year-old white female seen in consultation for Dr. Maldonado regarding a radiographic abnormality in the left axilla. She underwent a bilateral mammogram on . Following this an ultrasound of the left axilla was recommended. The nurse have felt a 1-2 cm nodule in the left breast at the 1 to 2:00 axillary tail position. An ultrasound was then performed on the same date which revealed a 4 x 4 mm oval solid lesion connecting to a 15 mm lymph node in the axillary tail. This was personally reviewed with Dr. Zuleta. The patient noted some tenderness under her left arm but no discrete constant mass. She has not had any history of trauma or infection in either breast nor in her left arm or hand. She is not complaining of any nipple discharge or skin changes. She is not complaining of any lumps masses or nodules in either breast. This was her first mammogram. Left axillary ultrasound performed on 3321. This revealed a 0.4 cm area adjacent to a lymph node which was felt to be not especially suspicious. The recommendation was for a repeat ultrasound of the left axilla in mid July with evaluation at that time. The patient on 320 [id number] underwent a CAT scan of the chest and on the CAT scan no definite definite left axillary mass or lymphadenopathy was identified. We continue to recommend the ultrasound be performed in mid July. Patient at this time does not feel any lumps masses or nodules of concern and no axillary adenopathy of concern. 08-14-21 and [place] [address]. This was reviewed with Dr. Sofia. Nothing of concern was identified. This was also compared [place] [address]. Again no axillary lesions of concern were identified. Patient is not complaining of any lumps masses or nodules in either axilla. She is not complaining of any tenderness in either axilla. 09-03-22 Key is a 52-year-old white female who was seen initially on for evaluation of some left axillary fullness. The patient is not complaining of any axillary fullness or lumps masses or nodules of concern in either breast. A bilateral mammogram was performed on which was benign BIRADS 1. x-rays were personally reviewed with radiology and he does not feel there is anything of concern in either axilla or in either breast. Therefore no ultrasound of the axilla was recommended further at this time. She will have a repeat bilateral mammogram in May 2023 with examination at that time. She notices anything of concern we will be happy to see her sooner The patient is noted to have a thyroid nodule in the left side as well which is being followed by endocrinology. 04-06-24 Key is a 53-year-old white female who was seen initially on for evaluation of some left axillary fullness. The patient on her last visit in 2022 was not complaining of any axillary fullness or lumps masses or nodules of concern in either breast. A bilateral mammogram was performed on which was benign BIRADS 1. x-rays were personally reviewed with radiology and he does not feel there is anything of concern in either axilla or in either breast. bilateral mammogram and ultrasound of the left axilla on 05-20-23 BIRAD 2, benign appearing node 2.6 cm noted at that time in the left axilla She states two months ago she felt some nodularity under her right breast, it seems to have gone away at this time She is not complaining of any nipple discharge or changes 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; at 19 gallbaldder Medical History: Rheumatoid arthritis on enbrel 1 shot a week it is helping Psoriasis carpel tunnel bilateral Hypertension Questionable hyperlipidemia Social History: nicotine: none alcohol:occasional drugs: none - Constitutional Constitutional: Denies chills, Denies fever - EENT Eyes: denies blurred vision, denies pain Ears: bilateral: tinnitus, deny: decreased hearing Ears, nose, mouth and throat: Denies headache, Denies sore throat - Breasts Breasts: bilateral: as per HPI - Cardiovascular Cardiovascular: Denies chest pain, Denies shortness of breath - Respiratory Respiratory: Denies cough - Gastrointestinal Gastrointestinal: Reports constipation, Denies abdominal pain, Denies diarrhea, Denies nausea, Denies vomiting - Genitourinary (Female) Genitourinary: Denies dysuria, Denies hematuria - Menstruation Menstruation: Reports postmenopausal - Musculoskeletal Musculoskeletal: Reports as per HPI - Integumentary Comment: Psoriasis Integumentary: Reports as per HPI - Neurological Neurological: Reports as per HPI - Psychiatric Psychiatric: Denies anxiety, Denies depression - Endocrine Endocrine: Reports weight change, Denies fatigue - Hematologic/Lymphatic Comment: none - Allergic/Immunologic Allergic/Immunologic: Reports seasonal allergies Objective - Vital Signs Vital signs: Vital Signs Temp 98.6 F 04/06/24 13:10 Pulse 66 04/06/24 13:10 Resp 17 04/06/24 13:10 BP 145/71 04/06/24 13:10 Pulse Ox 96 04/06/24 13:10 FiO2 Intake & Output 04/05/24 04/06/24 04/06/24 18:59 06:59 18:59 Weight 132.449 kg - Constitutional General appearance: Present: cooperative - EENT Eyes: Present: EOMI ENT: Present: hearing grossly normal - Neck Neck: Present: normal ROM - Respiratory Respiratory: bilateral: CTA - Cardiovascular Rhythm: regular Heart sounds: normal: S1, S2 - Integumentary Integumentary Comment(s): nodule at thyroid incision being worked by Dr. Falk Integumentary: Present: normal turgor - Musculoskeletal Musculoskeletal: Present: gait normal - Psychiatric Psychiatric: Present: A&O x's 3, appropriate affect, intact judgment & insight - Additional findings Additional findings: Breast Exam: BRA: 44DD inspection: bilateral grade 3 ptosis Palpation: Right breast: multi positional exam fibrocystic changes no dominant masses or nodules of concern; particular attention at the 6 o'clock position did not reveal any specific lumps or masses Right axilla: No adenopathy of concern Left breast: Multi-positional exam fibrocystic changes no dominant masses or nodules of concern Left axilla: Special attention to the left axilla did not reveal any dominant masses or nodules of concern Assessment and Plan Assessment: Impression: Rheumatoid arthritis Psoriasis carpel tunnel bilateral Hypertension Questionable hyperlipidemia bilateral mammogram on 05-20-23 and us of left axilla BIRAD 2 benign apprearing node 2.6 CM Plan: Fibrocystic breast changes No axillary adenopathy of concern on todays exam Repeat bilateral mammogram in May 2024, ultrasound of the right breast at 6 oclock with physician exam at that time Patient to follow up sooner if any questions or concerns CC: Dr. Maldonado
== END ==
LOC: WWCWWP 13:00
PROVIDERS: ATTEND Surgery
DX: N60.11 Diffuse cystic mastopathy of right breast (principal); N60.12 Diffuse cystic mastopathy of left breast; N63.32 Unspecified lump in axillary tail of the left breast; M06.9 Rheumatoid arthritis, unspecified; L40.9 Psoriasis, unspecified; I10 Essential (primary) hypertension; E78.5 Hyperlipidemia, unspecified; R92.8 Other abnormal and inconclusive findings on diagnostic imaging of breast; Z88.5 Allergy status to narcotic agent; Z88.8 Allergy status to other drugs, medicaments and biological substances

== ENCOUNTER → 2024-04-24 | Outpatient (CLI) | payer BC ==
--- NOTE | 2024-04-24 09:14 | US ---
EXAMINATION TYPE: US liver DATE OF EXAM: 04/24/2024 COMPARISON: NONE CLINICAL INDICATION: Female, 53 years old with history of R74.8 Elevated liver enzyme; large habitus, elevated lfts, rt flank pain, cholecystectomy TECHNIQUE: Grayscale and color Doppler imaging of the right upper quadrant was performed. FINDINGS: EXAM MEASUREMENTS: Liver Length: 16.7 cm Gallbladder Wall: Surgically absent CBD: 0.7 cm Right Kidney: 9.1 x 5.0 x 4.8 cm LEAD ELECTRICIAN NOTES:habitus and bowel gas limits study Pancreas: not seen Liver: intercostal imaging due to bowel gas Gallbladder: Surgically absent Evidence for sonographic Jamison's sign: no CBD: wnl Right Kidney: wnl IMPRESSION: No evidence for acute process. [facility], , 04/24/2024 9:12 AM
--- NOTE | 2024-04-24 09:31 | CT ---
EXAMINATION TYPE: CT soft tissue neck w con DATE OF EXAM: 04/24/2024 7:29 AM COMPARISON: None. CLINICAL INDICATION: Female, 53 years old with history of R22.1 NECK MASS; PHH, Swelling under chin TECHNIQUE: Standard enhanced CT of the neck. Axial sections with coronal and sagittal reformats were obtained. Contrast used:100 mL of Isovue 300 with IV Contrast, (None if empty) Oral contrast used: (None if empty) CT DLP: 766.1 mGycm, Automated exposure control for dose reduction was used. FINDINGS: Brain: Visualized portions are grossly unremarkable. Orbits: Unremarkable Sinuses: Grossly unremarkable. Spaces of the neck: Cystic lesion in the area of palpable abnormality measuring 14 mm and 21 Hounsfie ld units. Immediately abutting the skin epidermis. Musculoskeletal: No acute osseous pathology. Lymph nodes: Multiple nonenlarged lymph nodes are seen along both anterior chains of the neck. Vascular structures: Visualized major arteries are patent without evidence of aneurysm. Thoracic Inlet/airway: Airway is patent. The lung apices are clear. Soft tissues/Thyroid: Thyroid and remainder of the soft tissues are unremarkable. Other: none. IMPRESSION: Cystic lesion in the area of palpable abnormality measuring 14 mm adjacent to the epidermis possibly representing sebaceous cysts versus small abscess versus left likely thyroglossal duct given its loca tion versus other. [facility], , 04/24/2024 9:28 AM
== END | disposition home or self-care (01) ==
LOC: RADUSWWP 06:32
PROVIDERS: ATTEND Internal Medicine
DX: R74.8 Abnormal levels of other serum enzymes (principal); R22.1 Localized swelling, mass and lump, neck
CPT/HCPCS: 76705; 70491; Q9967

== ENCOUNTER → 2024-07-06 | Outpatient (CLI) | payer BC ==
--- NOTE | 2024-07-06 07:42 | MM ---
Reason for Exam: Clinical finding. Last mammogram was performed 1 year(s) and 2 month(s) ago. Patient History: Menarche at age 8. First Full-Term at age 27. Postmenopausal. Patient has history of breast feeding. Hormonal Contraceptives for 2 years from age 17 until age 19. 07/02/2021, US discontinued breast bx LT on the left side. Risk Values: Emilee 5 year model risk: 1.4%. NCI Lifetime model risk: 9.9%. Tissue Density: There are scattered areas of fibroglandular density. Findings: Analyzed By CAD. Anterior upper outer quadrant will cyst right breast is unchanged. No significant change from prior exams. Patient indicates palpable site at the 6:00 position right breast. No discrete abnormality is seen in this region. Overall Assessment: Incomplete: need additional imaging evaluation, BI-RAD 0 Management: Diagnostic Breast Ultrasound of the right breast. [facility], , 07/06/2024 7:39 AM. Electronically signed and approved by: Nelida Zuleta M.D. Radiologist
--- NOTE | 2024-07-06 07:58 | USB ---
Reason for Exam: Clinical finding. Patient History: Menarche at age 8. First Full-Term at age 27. Postmenopausal. Patient has history of breast feeding. Hormonal Contraceptives for 2 years from age 17 until age 19. 07/02/2021, US discontinued breast bx LT on the left side. Risk Values: Emilee 5 year model risk: 1.4%. NCI Lifetime model risk: 9.9%. Technique: Method: Targeted. Prior Study Comparison: 05/13/2021 Bilateral Diagnostic Mammogram, [facility]. 05/19/2022 Bilateral MG 3D diag mammo w/cad RINKU, [facility]. 05/20/2023 Bilateral MG 3D diag mammo w/cad RINKU, [facility]. Findings: The area of palpable concern of the right breast, the axilla of the right breast and the retroareolar of the right breast were scanned. Ultrasound targeted to the patient's palpable site 6:00. Additional scanning of the subareolar region and axilla. No solid or cystic lesion or axillary adenopathy. Overall Assessment: Negative, BI-RAD 1 Management: Screening Mammogram of both breasts in 1 year. A clinical breast exam by your physician is recommended on an annual basis and results should be correlated with mammographic findings. This exam should not preclude additional follow-up of suspicious palpable abnormalities. Results were given to the patient verbally at the time of exam. [facility], , 07/06/2024 7:55 AM. Electronically signed and approved by: Nelida Zuleta M.D. Radiologist
== END | disposition home or self-care (01) ==
LOC: RADMAMWWP 07:18
PROVIDERS: ATTEND Surgery
DX: R92.323 Mammographic fibroglandular density, bilateral breasts (principal); Z78.0 Asymptomatic menopausal state; Z92.0 Personal history of contraception
CPT/HCPCS: 77062; 77066

== ENCOUNTER → 2024-07-20 | Outpatient (CLI) | payer BC ==
[2024-07-20 13:28] VITALS: BP 130/74; PULSE 60; RESP 17; TEMP 97.5
--- NOTE | 2024-07-20 13:53 | P.PN ---
Subjective Progress Note Date: 07/20/24 04-06-24 Principal diagnosis: fibrocystic breast disease Left axillary fullness Key is a 51-year-old white female seen in consultation for Dr. Maldonado regarding a radiographic abnormality in the left axilla. She underwent a bilateral mammogram on . Following this an ultrasound of the left axilla was recommended. The nurse have felt a 1-2 cm nodule in the left breast at the 1 to 2:00 axillary tail position. An ultrasound was then performed on the same date which revealed a 4 x 4 mm oval solid lesion connecting to a 15 mm lymph node in the axillary tail. This was personally reviewed with Dr. Zuleta. The patient noted some tenderness under her left arm but no discrete constant mass. She has not had any history of trauma or infection in either breast nor in her left arm or hand. She is not complaining of any nipple discharge or skin changes. She is not complaining of any lumps masses or nodules in either breast. This was her first mammogram. Left axillary ultrasound performed on 3321. This revealed a 0.4 cm area adjacent to a lymph node which was felt to be not especially suspicious. The recommendation was for a repeat ultrasound of the left axilla in mid July with evaluation at that time. The patient on 320 [id number] underwent a CAT scan of the chest and on the CAT scan no definite definite left axillary mass or lymphadenopathy was identified. We continue to recommend the ultrasound be performed in mid July. Patient at this time does not feel any lumps masses or nodules of concern and no axillary adenopathy of concern. 08-14-21 and ultrasound of the left axilla was performed on . This was reviewed with Dr. Sofia. Nothing of concern was identified. This was also compared [place] [address]. Again no axillary lesions of concern were identified. Patient is not complaining of any lumps masses or nodules in either axilla. She is not complaining of any tenderness in either axilla. 09-03-22 Key is a 52-year-old white female who was seen initially on for yosvany luation of some left axillary fullness. The patient is not complaining of any axillary fullness or lumps masses or nodules of concern in either breast. A bilateral mammogram was performed on which was benign BIRADS 1. x-rays were personally reviewed with radiology and he does not feel there is anything of concern in either axilla or in either breast. Therefore no ultrasound of the axilla was recommended further at this time. She will have a repeat bilateral mammogram in May 2023 with examination at that time. She notices anything of concern we will be happy to see her sooner The patient is noted to have a thyroid nodule in the left side as well which is being followed by endocrinology. 04-06-24 Key is a 53-year-old white female who was seen initially on for e valuation of some left axillary fullness. The patient on her last visit in 2022 was not complaining of any axillary fullness or lumps masses or nodules of concern in either breast. A bilateral mammogram was performed on which was benign BIRADS 1. x-rays were personally reviewed with radiology and he does not feel there is anything of concern in either axilla or in either breast. bilateral mammogram and ultrasound of the left axilla on 05-20-23 BIRAD 2, benign appearing node 2.6 cm noted at that time in the left axilla She states two months ago she felt some nodularity under her right breast, it seems to have gone away at this time She is not complaining of any nipple discharge or changes 07-20-24 Key is a 54-year-old white female who was seen initially on for evalua tion of some left axillary fullness. The patient on her visit in 2022 was not complaining of any axillary fullness or lumps masses or nodules of concern in either breast. A bilateral mammogram was performed on which was benign BIRADS 1. x-rays were personally reviewed with radiology and he does not feel there is anything of concern in either axilla or in either breast. bilateral mammogram and ultrasound of the left axilla on 05-20-23 BIRAD 2, benign appearing node 2.6 cm noted at that time in the left axilla She states about January 2024 she felt some nodularity under her right breast, it seems to have gone away at this time She is not complaining of any nipple discharge or changes Bilateral mammogram on 07-06-24 BIRAD 0 and right breast ultrasound done on the same day, BIRAD 1 As the patient felt some nodularity in her right breast but she does not feel it any longer. 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; at 19 gallbaldder Medical History: Rheumatoid arthritis on enbrel 1 shot a week it is helping Psoriasis carpel tunnel bilateral Hypertension Questionable hyperlipidemia Social History: nicotine: none alcohol:occasional drugs: none - Constitutional Constitutional: Denies chills, Denies fever - EENT Eyes: denies blurred vision, denies pain Ears: bilateral: tinnitus, deny: decreased hearing Ears, nose, mouth and throat: Denies headache, Denies sore throat - Breasts Breasts: bilateral: as per HPI - Cardiovascular Cardiovascular: Denies chest pain, Denies shortness of breath - Respiratory Respiratory: Denies cough - Gastrointestinal Gastrointestinal: Reports constipation, Denies abdominal pain, Denies diarrhea, Denies nausea, Denies vomiting - Genitourinary (Female) Genitourinary: Denies dysuria, Denies hematuria - Menstruation Menstruation: Reports postmenopausal - Musculoskeletal Musculoskeletal: Reports as per HPI - Integumentary Comment: Psoriasis Integumentary: Reports as per HPI - Neurological Neurological: Reports as per HPI - Psychiatric Psychiatric: Denies anxiety, Denies depression - Endocrine Endocrine: Reports weight change, Denies fatigue - Hematologic/Lymphatic Comment: none - Allergic/Immunologic Allergic/Immunologic: Reports seasonal allergies Objective - Vital Signs Vital signs: Vital Signs Temp 97.5 F L 07/20/24 13:26 Pulse 60 07/20/24 13:26 Resp 17 07/20/24 13:26 BP 130/74 07/20/24 13:26 Pulse Ox 99 07/20/24 13:26 FiO2 Intake & Output 07/19/24 07/20/24 07/20/24 18:59 06:59 18:59 Weight 136.078 kg - Constitutional General appearance: Present: cooperative - EENT Eyes: Present: EOMI ENT: Present: hearing grossly normal - Neck Neck: Present: normal ROM - Respiratory Respiratory: bilateral: CTA - Cardiovascular Rhythm: regular Heart sounds: normal: S1, S2 - Integumentary Integumentary: Present: normal turgor - Musculoskeletal Musculoskeletal: Present: gait normal - Psychiatric Psychiatric: Present: A&O x's 3, appropriate affect, intact judgment & insight - Additional findings Additional findings: Breast Exam: BRA: 44DD inspection: bilateral grade 3 ptosis Palpation: Right breast: multi positional exam fibrocystic changes no dominant masses or nodules of concern; particular attention at the 6 o'clock position did not reveal any specific lumps or masses Right axilla: No adenopathy of concern Left breast: Multi-positional exam fibrocystic changes no dominant masses or nodules of concern Left axilla: Special attention to the left axilla did not reveal any dominant masses or nodules of concern Assessment and Plan Assessment: Impression: Rheumatoid arthritis Psoriasis carpel tunnel bilateral Hypertension Questionable hyperlipidemia bilateral mammogram on 07-06-24 and us of the right breast no lesions of concern Plan: Fibrocystic breast changes No axillary adenopathy of concern on todays exam Repeat bilateral mammogram in May 2025 Patient to follow up sooner if any questions or concerns CC: Dr. Maldonado
== END ==
LOC: WWCWWP 12:43
PROVIDERS: ATTEND Surgery
DX: N60.19 Diffuse cystic mastopathy of unspecified breast (principal); M06.9 Rheumatoid arthritis, unspecified; L40.9 Psoriasis, unspecified; I10 Essential (primary) hypertension; G56.00 Carpal tunnel syndrome, unspecified upper limb; Z88.8 Allergy status to other drugs, medicaments and biological substances